=== PATIENT | male | born 1940 | race Caucasian/White ===

== ENCOUNTER → 2016-09-23 | Outpatient (CLI) | payer OTHER ==
[~2016-09-23] MED LIST: LSN20 PO; MULT-506 PO
[2016-09-23 11:27] LABS: ALB/GLOB RATIO 0.9 (0.9-2); ALKALINE PHOSPHATASE 71 U/L (45-117); ALT/SGPT 23 U/L (12-78); AST/SGOT 26 U/L (15-37); BASO % 0.4 %; BASO ABS # 0.02 K/uL (0-0.2); BLOOD UREA NITROGEN 20 mg/dl (7-18); BUN/CREATININE RATIO 18.3 (10-20); CALCIUM 9.1 mg/dl (8.5-10.1); CARBON DIOXIDE 28 mmol/L (21-32); CHLORIDE 108 mmol/L (98-107); CHOLESTEROL 182 mg/dl (0-200); CHOLESTEROL/HDL RATIO 4.8; COMPLETE YES; EOS % 2.4 %; GLUCOSE 97 mg/dl (70-99); HDL CHOLESTEROL 38 mg/dl; HEMATOCRIT 47.3 % (42-52); IG% 0.4 %; LYMPH % 21.8 %; MEAN CORPUSCULAR HEMOGLOBIN 29.6 pg (25-34); MEAN CORPUSCULAR HGB CONC 32.1 g/dl (32-36); MONO % 14.1 %; NEUT % 60.9 %; PLATELET COUNT 172 K/uL (130-400); POTASSIUM 4.4 mmol/L (3.5-5.1); RED BLOOD COUNT 5.14 M/uL (4.7-6.1); SODIUM 142 mmol/L (136-145); WHITE BLOOD COUNT 5.04 K/uL (4.8-10.8)
[2016-09-23 11:30] LABS: LDL CHOLESTEROL CALCULATED 112 mg/dl; TRIGLYCERIDES 159 mg/dl (0-150); VERY LOW DENSITY LIPOPROT CALC 32 mg/dl
== END | disposition home or self-care (01) ==
LOC: C.LABBC 07:46
PROVIDERS: ATTEND Family Medicine
DX: E78.5 Hyperlipidemia, unspecified (principal); I10 Essential (primary) hypertension; C20 Malignant neoplasm of rectum

== ENCOUNTER → 2017-08-26 | Outpatient (CLI) | payer OTHER ==
[2017-08-26 11:31] LABS: ALBUMIN 3.8 gm/dl (3.4-5.0); ALT/SGPT 20 U/L (12-78); BLOOD UREA NITROGEN 18 mg/dl (7-18); CALCIUM 8.8 mg/dl (8.5-10.1); CARBON DIOXIDE 25 mmol/L (21-32); CHOLESTEROL 176 mg/dl (0-200); CREATININE 1.09 mg/dl (0.60-1.40); GLUCOSE 93 mg/dl (70-99); SODIUM 139 mmol/L (136-145)
[2017-08-26 11:33] LABS: ALKALINE PHOSPHATASE 84 U/L (45-117); AST/SGOT 25 U/L (15-37); LDL CHOLESTEROL CALCULATED 108 mg/dl; TOTAL PROTEIN 8.1 gm/dl (6.4-8.2)
== END | disposition home or self-care (01) ==
LOC: C.LABBC 08:48
PROVIDERS: ATTEND Physician Assistant Medical
DX: I10 Essential (primary) hypertension (principal); E78.5 Hyperlipidemia, unspecified; M25.551 Pain in right hip

== ENCOUNTER 2021-02-24 20:35 | Observation (INO) ==
[2021-02-24] MEDS ORDERED: ONDANSETRON INJ 2 MG/ML 2 ML VIAL IV STA (21:54)
[2021-02-24] MEDS ORDERED: PIPERACILLIN/TAZOBACTAM 4.5 GM/120 ML BAG IV ONE (21:54)
[2021-02-24] MEDS ORDERED: PIPERACILL/TAZOBAC CONSULT ACTIVE PRN (21:54)
--- NOTE | 2021-02-24 22:02 | Emergency Department Note ---
Impression & Plan Abdominal pain, Fever, Elevated troponin I level ED Provider Note NAME: STEVEN ISBELL AGE: 81 SEX: M : 1940 ARRIVES VIA: Walk-In INFORMANT: Patient, ED PROVIDER(S): Domingo Galloway DO CHIEF COMPLAINT: abdominal pain HPI: the patient is an 81-year-old male who presented to the emergency department for an evaluation of abdominal pain. The patient's been experiencing right upper quadrant abdominal pain over the course the last few days. He was started on antibiotic as an outpatient by his primary care physician but at this time he is unsure what the antibiotic was. He denies having any vomiting but does have nausea. He does complain of back pain. At this time he denies having any chest pain. He denies having any lower extremity redness. His did note that he was breathing fast but was unsure if this was because of the fever. The fever was noted in triage. The patient denies having any recent trauma. He is h ad no exposure to COVID-19. The patient states he has been compliant with all of his usual outpatient medications. ROS: See above HPI for pertinent positives & negatives. A total of 10 systems reviewed and were otherwise negative. PAST MEDICAL HISTORY: See Below PAST SURGICAL HISTORY: See Below FAMILY HISTORY: See Below SOCIAL HISTORY: See Below HOME MEDICATIONS: See Below ALLERGIES: See Below VITALS: See Below PHYSICAL EXAMINATION: GENERAL: the patient is awake and alert. The patient is somewhat anxious appearing. EYES: The conjunctivae are clear. The pupils are round and reactive. EARS, NOSE, MOUTH AND THROAT: The nose is without any evidence of any deformity. NECK: The neck is nontender and supple. RESPIRATORY: Normal respiratory effort is noted there is no evidence of wheezing rhonchi or rales CARDIOVASCULAR: Regular rate and rhythm noted there no murmurs rubs or gallops normal S1 normal S2. GASTROINTESTINAL: the abdomen was soft and mildly distended. There is diffuse tenderness to palpation. There is specific tenderness in the right upper quadran t. MUSCULOSKELETAL/EXTREMITIES: There is no evidence of gross deformity full range of motion is noted in the hips and shoulders. SKIN: pedal edema was noted bilaterally. Skin was warm and dry. NEUROLOGIC: Patient is awake alert and oriented x3. MEDICAL DECISION MAKING: the patient is an 81-year-old male who presented to emergency department for an evaluation of abdominal pain. The patient was found to have significant abdominal pain on physical exam. CT showed of some fluid collection in the pelvis which could be related to an infection. The patient and his significant other state has had this in the past and it was drained. The patient was treated with IV antibiotics emergency department. He was reevaluated multiple times. I discussed this case with the on-call [facility] hospitalist as well as the on-call general surgical and urology group. They will evaluate the patient in the emergency department. Triage Nursing notes reviewed. Prior medical records reviewed Vital Signs: reviewed and remarkable for no significant abnormalities Differential diagnosis: Etiologies such as appendicitis, diverticulitis, obstruction, inflammatory bowel disease, renal colic, PUD, biliary pathology, pancreatitis, mesenteric ischemia, aortic pathology, infections, genitourinary, UTI, perforated viscus, as well as others were entertained. ER treatment provided: See below Diagnostics interpreted by me: ECG: EKG was obtained in the emergency department. My interpretation is sinus rhythm at 99 bpm. There was no activity. There was no acute ST segment abnormalities noted. This was compared to retracing from February 23, 2020. No significant changes were noted. Cardiac Monitoring: An order was placed for continuous cardiac monitoring. The monitor shows a rate of 67 bpm with sinus rhythm. Laboratory studies: As stated above and show below. Imaging studies: See below Consultation(s): I discussed this case with Dr. Jackson who was operator weapon locating radar for the [facility] hospitalist. I discussed this case with Tejinder Alan who was operator weapon locating radar for the urology group. Past Med/Surg History Medical History Aneurysm of infrarenal abdominal aorta (2013) 4.4 x 4.1 cm per 07/18/[address] scan[address] scan 01/2020 incidentally found bladder mass. 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 H/o tobacco abuse. Rectal cancer s/p colectomy, 2001. Now declines any follow-up with surgery, GI or oncology per PCP note 01/31/20. Surgical History H/O knee surgery H/O wrist surgery History of bladder surgery History of colectomy 2001 in [place] History of colonoscopy (04/30/14) History of incisional hernia repair Hx of cataract surgery R/L Family History Mother Cardiac disorder Hypertension Stroke Father Cancer Daughter Family history of reaction to anesthesia CONFUSED POSTOP Social History Smoking Status: Never smoker Tobacco Type: Cigarettes packs per day: 1; Years Smoked: 30; Second Hand Exposure: No; Hx Alcohol Use: No Hx Substance Use: No Preferred Language: Djiboutian Communication Ability: Effective Visual Impairment: Diminished Hearing Ability: Normal Nib Finisher Required: No Beliefs That Will Affect Care: None marital status: Current Living Situation: Spouse current occupational status: retired current occupation: semi-retired Feels Safe at Home: Yes Childhood Exposure to Second-Hand Smoke: Yes caffeine: Yes Dental Care, Regularly: Yes Physical Activity Frequency: Other Physical Activity Frequency Comment: "works" Seatbelt Use: never Sunscreen Use: No Do you think of yourself as: straight/heterosexual Assistive Devices: Glasses Allergies Allergies Allergy/AdvReac Type Severity Reaction Status Date / Time oxycodone [From OxyContin] AdvReac Intermediate Confusion Verified 02/24/21 22:05 [email or web address] AdvReac Intermediate CONFUSION Verified 02/24/21 22:05 Home Meds Home Medications Medication Instructions Recorded Confirmed acetaminophen 500 mg capsule 500 - 1,000 mg PO Q6H PRN 02/16/20 02/24/21 multivitamin 1 tab PO DAILY 02/24/21 02/24/21 Previous Rx's Medication Instructions Recorded lisinopril 20 mg tablet 20 mg PO BID #180 tab 10/17/20 ciprofloxacin HCl 500 mg tablet 500 mg PO BID 5 Days #10 tab 02/24/21 Results & Data (ED) Vital Signs Vital Signs - 24 hr 02/24/21 20:46 02/24/21 20:52 02/24/21 22:15 Temperature 38.0 C H Temperature Source Oral Pulse Rate 99 H 92 H Pulse Rate from SpO2 Sensor 92 H Respiratory Rate 22 27 H Blood Pressure 116/73 119/64 Blood Pressure Mean 87 82 Blood Pressure Position Sitting Pulse Oximetry 88 L 93 95 Oxygen Delivery Method Room Air Nasal Cannula Oxygen Flow Rate 3 Sepsis Recent Fever Within 48 Hours Yes Sepsis New/Unexplained Change in Mental Status N/A Sepsis Action Taken by Nursing No Action Required 02/24/21 22:20 02/24/21 22:31 02/24/21 22:45 Temperature Temperature Source Pulse Rate 88 97 H Pulse Rate from SpO2 Sensor 89 97 H Respiratory Rate 29 H 29 H Blood Pressure 139/61 120/67 Blood Pressure Mean 87 84 Blood Pressure Position Pulse Oximetry 98 93 92 Oxygen Delivery Method Room Air Oxygen Flow Rate Sepsis Recent Fever Within 48 Hours Sepsis New/Unexplained Change in Mental Status Sepsis Action Taken by Nursing 02/24/21 23:01 02/25/21 00:15 02/25/21 00:34 Temperature 37.5 C Temperature Source Pulse Rate 106 H 73 78 Pulse Rate from SpO2 Sensor 106 H 78 Respiratory Rate 21 23 23 Blood Pressure 124/74 122/54 L 119/57 L Blood Pressure Mean 90 76 77 Blood Pressure Position Pulse Oximetry 93 93 95 Oxygen Delivery Method Room Air Nasal Cannula Nasal Cannula Oxygen Flow Rate 2 Sepsis Recent Fever Within 48 Hours Sepsis New/Unexplained Change in Mental Status Sepsis Action Taken by Nursing 02/25/21 01:00 02/25/21 01:30 Temperature Temperature Source Pulse Rate 72 67 Pulse Rate from SpO2 Sensor 72 67 Respiratory Rate 24 22 Blood Pressure 97/52 L 103/52 L Blood Pressure Mean 67 69 Blood Pressure Position Pulse Oximetry 91 91 Oxygen Delivery Method Nasal Cannula Oxygen Flow Rate Sepsis Recent Fever Within 48 Hours Sepsis New/Unexplained Change in Mental Status Sepsis Action Taken by Long Term Medications Current Medication List: was personally reviewed by me Laboratory Data Attestation: I reviewed the patient's lab results. Result diagrams: 02/24/21 22:14 02/24/21 22:14 Lab Results 02/24/21 02/24/21 02/24/21 Range/Units 22:14 22:14 22:14 WBC 6.27 (4.8-10.8) K/uL RBC 5.17 (4.7-6.1) M/uL Hgb 14.9 (14.0-18.0) g/dL Hct 44.7 (42-52) % MCV 86.5 (80-100) fL MCH 28.8 (25-34) pg MCHC 33.3 (32-36) g/dL RDW Std Deviation 50.7 H (36.4-46.3) fL RDW Coeff of Serena 15.8 H (11.5-14.5) % Plt Count 144 (130-400) K/uL MPV 11.1 H (7.4-10.4) fL Immature Gran % (Auto) 0.2 % Neut % (Auto) 94.8 % Lymph % (Auto) 3.0 % Frio % (Auto) 1.6 % Eos % (Auto) 0.2 % Baso % (Auto) 0.2 % Neut # (Auto) 5.95 (1.4-6.5) K/uL Lymph # (Auto) 0.19 L (1.2-3.4) K/uL Frio # (Auto) 0.10 L (0.11-0.59) K/uL Eos # (Auto) 0.01 (0-0.5) K/uL Baso # (Auto) 0.01 (0-0.2) K/uL Immature Gran # (Auto) 0.01 (0.00-0.02) K/uL PT 10.4 (9.0-12.0) Seconds INR 1.0 (0.9-1.1) APTT 24.5 (21.0-31.0) Seconds PTT Ratio 0.9 Sodium 139 (136-145) mmol/L Potassium 4.7 (3.5-5.1) mmol/L Chloride 107 (98-107) mmol/L Carbon Dioxide 26 (21-32) mmol/L Anion Gap 6.0 (3-11) BUN 21 H (7-18) mg/dl Creatinine 1.46 H (0.6-1.4) mg/dl Est Cr Clr Drug Dosing Not Reportable Est GFR ( Amer) 51.9 ml/min Est GFR (Non-Af Amer) 44.8 ml/min BUN/Creatinine Ratio 14.1 (10-20) Glucose 123 H (70-99) mg/dl Calcium 9.1 (8.5-10.1) mg/dl Total Bilirubin 0.7 (0.2-1) mg/dl AST 27 (15-37) U/L ALT 24 (12-78) U/L Alkaline Phosphatase 101 (45-117) U/L Troponin I 0.318 H* (0-0.045) ng/ml Total Protein 8.6 H (6.4-8.2) gm/dl Albumin 3.4 (3.4-5.0) gm/dl Globulin 5.2 H (2.5-4.0) gm/dl Albumin/Globulin Ratio 0.7 L (0.9-2) Lipase 149 (73-393) U/L Urine Color Urine Appearance (Clear) Urine pH (4.5-7.5) Ur Specific [place] (1.000-1.030) Urine Protein (Negative) Urine Glucose (UA) (Negative) Urine Ketones (Negative) Urine Blood (Negative) Urine Nitrite (Negative) Urine Bilirubin (Negative) Urine Urobilinogen (Negative) Ur Leukocyte Esterase (Negative) Urine WBC (Auto) (0-5) /hpf Urine RBC (Auto) (0-4) /hpf U Hyaline Cast (Auto) (0-5) /lpf U Epithel Cells (Auto) (0-5) /lpf Urine Bacteria (Auto) (Negative) COVID-19 Eval Order SARS-CoV-2 (PCR) (Negative) 02/24/21 02/24/21 02/25/21 Range/Units 22:20 22:20 00:35 WBC (4.8-10.8) K/uL RBC (4.7-6.1) M/uL Hgb (14.0-18.0) g/dL Hct (42-52) % MCV (80-100) fL MCH (25-34) pg MCHC (32-36) g/dL RDW Std Deviation (36.4-46.3) fL RDW Coeff of Serena (11.5-14.5) % Plt Count (130-400) K/uL MPV (7.4-10.4) fL Immature Gran % (Auto) % Neut % (Auto) % Lymph % (Auto) % Frio % (Auto) % Eos % (Auto) % Baso % (Auto) % Neut # (Auto) (1.4-6.5) K/uL Lymph # (Auto) (1.2-3.4) K/uL Frio # (Auto) (0.11-0.59) K/uL Eos # (Auto) (0-0.5) K/uL Baso # (Auto) (0-0.2) K/uL Immature Gran # (Auto) (0.00-0.02) K/uL PT (9.0-12.0) Seconds INR (0.9-1.1) APTT (21.0-31.0) Seconds PTT Ratio Sodium (136-145) mmol/L Potassium (3.5-5.1) mmol/L Chloride (98-107) mmol/L Carbon Dioxide (21-32) mmol/L Anion Gap (3-11) BUN (7-18) mg/dl Creatinine (0.6-1.4) mg/dl Est Cr Clr Drug Dosing Est GFR ( Amer) ml/min Est GFR (Non-Af Amer) ml/min BUN/Creatinine Ratio (10-20) Glucose (70-99) mg/dl Calcium (8.5-10.1) mg/dl Total Bilirubin (0.2-1) mg/dl AST (15-37) U/L ALT (12-78) U/L Alkaline Phosphatase (45-117) U/L Troponin I (0-0.045) ng/ml Total Protein (6.4-8.2) gm/dl Albumin (3.4-5.0) gm/dl Globulin (2.5-4.0) gm/dl Albumin/Globulin Ratio (0.9-2) Lipase (73-393) U/L Urine Color Yellow Urine Appearance Clear (Clear) Urine pH 5.5 (4.5-7.5) Ur Specific [place] 1.039 H (1.000-1.030) Urine Protein Negative (Negative) Urine Glucose (UA) Negative (Negative) Urine Ketones Negative (Negative) Urine Blood Trace H (Negative) Urine Nitrite Negative (Negative) Urine Bilirubin Negative (Negative) Urine Urobilinogen Negative (Negative) Ur Leukocyte Esterase Negative (Negative) Urine WBC (Auto) 5-10 H (0-5) /hpf Urine RBC (Auto) 0-4 (0-4) /hpf U Hyaline Cast (Auto) 0 (0-5) /lpf U Epithel Cells (Auto) 0-5 (0-5) /lpf Urine Bacteria (Auto) Negative (Negative) COVID-19 Eval Order Covid19 at [facility] SARS-CoV-2 (PCR) NEGATIVE (Negative) Administered Medications Discontinued Medications Piperacillin Sod/Tazobactam Sod (Zosyn) 4.5 gm in 120 mls @ 240 mls/hr IV NOW ONE Stop: 02/24/21 22:23 Last Infusion: 02/25/21 00:06 Dose: 0 mls/hr Documented by: [id number] Admin: 02/24/21 23:07 Dose: 240 mls/hr Documented by: [id number] Sodium Chloride (Nss 1000ml) 1,000 mls @ 999 mls/hr IV .Q1H1M ONE Stop: 02/24/21 23:52 Last Infusion: 02/25/21 00:06 Dose: 0 mls/hr Documented by: [id number] Admin: 02/24/21 23:07 Dose: 999 mls/hr Documented by: [id number] Ioversol (Optiray 320 100ml) 100 ml IV ONCE ONE Stop: 02/24/21 23:46 Last Admin: 02/24/21 23:45 Dose: 93 ml Documented by: [id number] Ondansetron HCl (Ondansetron Inj 2 Mg/Ml 2 Ml Vial) 4 mg IV NOW STA Stop: 02/24/21 21:55 Last Admin: 02/24/21 23:07 Dose: 4 mg Documented by: [id number] Imaging Data Attestation: I personally reviewed and interpreted this imaging study as follows: My Impression: One view chest x-ray was obtained in the emergency department. My interpretation is by Basler atelectasis right greater than left. There is no definite filtrate. There is no free air. Radiologist's Impression: Patient: STEVEN ISBELL (Male) : 42 Status: ER Date: 02/25/21 00:03 Room #: History: DIFFUSE ABD PAIN, FEVER Slices: [id number] Priors: Tech: Semaj Wilkerson @ [phone] Exams: CT ABDOMEN & PELVIS With Contrast Contrast: IV Amt: 93 ML OPTIRAY 320 Accession Numbers: [id number] Referring Physician: REFERRED SELF Preliminary Findings Only See Final Report For Complete Findings CT ABDOMEN & PELVIS With Contrast: Mild basilar atelectasis. Mild/moderate hiatal hernia. Fatty infiltration of liver. Spleen at upper limits of normal at 13.8 cm. Scattered pancreatic calcifications likely of chronic pancreatitis. Medial duodenal diverticula extending superior and anterior to the CBD. Left kidney anterior upper pole 1.7 cm cyst. 4.3 cm caliber infrarenal fusiform abdominal aortic aneurysm. Thrombus is seen along the left side of the aorta with a 1.7 cm lumen along the right side. Atherosclerotic calcification extending into bilateral iliac arteries. Left anterior abdominal wall colostomy. Status post prostatectomy. Urinary bladder is normal. Mucosal thickening and fluid in the presacral space measuring up to 2.2 cm in thickness and 8.5 cm [id number]. Possibility of abscess or infection not excluded. Mild irregularity along the anterior cortical surface of the sacrum. Consider bone scan correlation to exclude possibility of osteomyelitis. Sagittal image 43, axial image . L3-4, L4-5, L5-S1 disc desiccation, vacuum disc phenomena and degenerative changes. Radiologist: Juice Kaplan MD Study ready at 00:25 and initial results transmitted at 01:05 Discharge Plan Visit Data Chief Complaint: Abdominal Pain Stated Complaint: CHILLS, ABD PAIN ED Provider: Domingo Galloway Discharge Problem: Abdominal pain, Fever, Elevated troponin I level Patient Disposition: Being Evaluated by Hospitalist Forms Stand Alone Forms: My [facility] Prescriptions Prescriptions: No Action ciprofloxacin HCl 500 mg tablet 500 mg PO BID 5 Days Qty: 10 RF: 0 lisinopril 20 mg tablet 20 mg PO BID Qty: 180 RF: 3 acetaminophen 500 mg Capsule 500 - 1,000 mg PO Q6H PRN (Reason: Pain) RF: 0 multivitamin Tablet 1 tab PO DAILY RF: 0 Referrals Referrals: Angel Barnes DO [Primary Care Provider] -
[2021-02-24 22:26] LABS: Basophils # (auto) 0.01 K/uL (0-0.2); Basophils % (auto) 0.2 %; Eosinophils # (auto) 0.01 K/uL (0-0.5); Eosinophils % (auto) 0.2 %; Hematocrit (blood only) 44.7 % (42-52); Hemoglobin 14.9 g/dL (14.0-18.0); Immature Granulocytes # (auto) 0.01 K/uL (0.00-0.02); Immature Granulocytes % (auto) 0.2 %; Lymphocytes # (auto) 0.19 K/uL (1.2-3.4); Mean Corpuscular Hemoglobin 28.8 pg (25-34); Mean Corpuscular Hgb Conc 33.3 g/dL (32-36); Mean Corpuscular Volume 86.5 fL (80-100); Mean Platelet Volume 11.1 fL (7.4-10.4); Monocytes % (auto) 1.6 %; Neutrophils # (auto) 5.95 K/uL (1.4-6.5); Neutrophils % (auto) 94.8 %; Platelet Count 144 K/uL (130-400); RDW Coefficient of Variation 15.8 % (11.5-14.5); RDW Standard Deviation 50.7 fL (36.4-46.3); Red Blood Count 5.17 M/uL (4.7-6.1); White Blood Count 6.27 K/uL (4.8-10.8)
[2021-02-24 22:43] LABS: Albumin Level 3.4 gm/dl (3.4-5.0); Aspartate Aminotransferase 27 U/L (15-37); BUN Creatinine Ratio 14.1 (10-20); Blood Urea Nitrogen 21 mg/dl (7-18); Calcium 9.1 mg/dl (8.5-10.1); Carbon Dioxide 26 mmol/L (21-32); Chloride 107 mmol/L (98-107); Est GFR (African American) 51.9 ml/min; Est GFR (Non-African American) 44.8 ml/min; Glucose 123 mg/dl (70-99); Lipase 149 U/L (73-393); Potassium 4.7 mmol/L (3.5-5.1); Sodium 139 mmol/L (136-145)
[2021-02-24] MEDS ORDERED: SODIUM CHLORIDE 0.9% 1000ML 1,000 ML IV ONE (22:52)
[2021-02-24 23:02] LABS: Alanine Aminotransferase 24 U/L (12-78); Albumin Globulin Ratio 0.7 (0.9-2); Alkaline Phosphatase 101 U/L (45-117); Bilirubin,Total 0.7 mg/dl (0.2-1); Globulin 5.2 gm/dl (2.5-4.0); Total Protein 8.6 gm/dl (6.4-8.2); Troponin I 0.318 ng/ml (0-0.045)
[2021-02-24 23:03] LABS: Partial Thromboplastin Ratio 0.9; Partial Thromboplastin Time 24.5 Seconds (21.0-31.0); Prothrombin Time 10.4 Seconds (9.0-12.0)
[2021-02-24] MEDS ORDERED: OPTIRAY 320 100ml IV ONE (23:45)
[2021-02-25 01:29] LABS: Appearance Urine Clear (Clear); Bacteria Urine Automated Negative (Negative); Bilirubin Urine Negative (Negative); Blood Urine Trace (Negative); Cast Urine Automated 0 /lpf (0-5); Color Urine Yellow; Epithelial Cell Urine Auto 0-5 /lpf (0-5); Glucose Urine UA Negative (Negative); Ketones Urine Negative (Negative); Leukocyte Esterase Urine Negative (Negative); Nitrite Urine Negative (Negative); Protein Urine Negative (Negative); RBC Urine Automated 0-4 /hpf (0-4); Specific Gravity Urine 1.039 (1.000-1.030); Urobilinogen Urine Negative (Negative); pH Urine 5.5 (4.5-7.5)
--- NOTE | 2021-02-25 02:42 | Urology Consultation ---
Date of Consultation February 25, 2021 Assessment & Plan (1) Abdominal pain: Patient is being admitted by the hospital service: It is uncertain if the fluid collection noted on CT scan in the presacral area represents an abscess or infected fluid. Recommend treating the patient with broad-spectrum antibiotics. Zosyn has already been administered. Blood and urine cultures have been sent and antibiotics can be tailored based on the results of these. We will monitor the patient's serial labs as well as clinically. If he fails to improve clinically repeat imaging can be considered at the fluid collection remains consideration can be given to draining this fluid Patient may have clear liquids for the present time General recommendations be made based on the patient's clinical course as it unfolds History of Present Illness Reason for Consultation: Possible pelvic abscess History of Present Illness Is an 81-year-old male who presented to [facility] emergency department secondary to abdominal pain along with fever. He also noted some shakes and chills. Patient notes that he has been having abdominal pain that appears to be greatest in the right upper quadrant he says for about 5 days. He denies any nausea vomiting. Patient does have a colostomy and he notes it has been working appropriately. He denies any decrease in appetite. He does note some intermittent dysuria. In addition to these complaints he does note some pain in his perineal area. As these symptoms have been going on for several days he did see his primary care physician who placed the patient on antibiotics that the patient is unsure of what this medicine was. In the emergency department patient did have labs and imaging which I independently reviewed. Chest x-ray did not show any pneumonia. CT scan of the abdomen and pelvis did raise concern for the possibility of an abscess or infected fluid in the presacral space. This fluid collection measured approximately 2.2 cm in thickness and 8.5 cm side to side. Labs include a CBC her white blood cell count, hemoglobin, hematocrit, and platelet count are all within normal range. Mr. Profile showed sodium and potassium within normal range. BUN and creatinine were slightly elevated at 21 and 1.4. Patient was noted to have a slight elevation of his troponin at 0.318. Urinalysis was not indicative of infection. A Covid test was performed was noted to be negative. At the time of interview the patient was resting comfortably in bed in no distress. Allergies Allergy/AdvReac Type Severity Reaction Status Date / Time oxycodone [From OxyContin] AdvReac Intermediate Confusion Verified 02/24/21 22:05 [email or web address] AdvReac Intermediate CONFUSION Verified 02/24/21 22:05 Home Medications Medication Instructions Recorded Confirmed Type acetaminophen 500 mg capsule 500 - 1,000 mg PO Q6H PRN 02/16/20 02/24/21 History lisinopril 20 mg tablet 20 mg PO BID #180 tab 10/17/20 02/24/21 Rx ciprofloxacin HCl 500 mg tablet 500 mg PO BID 5 Days #10 tab 02/24/21 02/24/21 Rx multivitamin 1 tab PO DAILY 02/24/21 02/24/21 History Patient History Medical History Aneurysm of infrarenal abdominal aorta (2013) 4.4 x 4.1 cm per 07/18/[address] scan[address] scan 01/2020 incidentally found bladder mass. 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 H/o tobacco abuse. Rectal cancer s/p colectomy, 2001. Now declines any follow-up with surgery, GI or oncology per PCP note 01/31/20. Surgical History H/O knee surgery H/O wrist surgery History of bladder surgery History of colectomy 2001 in [place] History of colonoscopy (04/30/14) History of incisional hernia repair Hx of cataract surgery R/L Family History Mother Cardiac disorder Hypertension Stroke Father Cancer Daughter Family history of reaction to anesthesia CONFUSED POSTOP Social History Smoking Status: Never smoker Tobacco Type: Cigarettes packs per day: 1; Years Smoked: 30; Second Hand Exposure: No; Hx Alcohol Use: No Hx Substance Use: No Preferred Language: Niuean Communication Ability: Effective Visual Impairment: Diminished Hearing Ability: Normal Sewer System Supervisor Required: No Beliefs That Will Affect Care: None marital status: Current Living Situation: Spouse current occupational status: retired current occupation: semi-retired Feels Safe at Home: Yes Childhood Exposure to Second-Hand Smoke: Yes caffeine: Yes Dental Care, Regularly: Yes Physical Activity Frequency: Other Physical Activity Frequency Comment: "works" Seatbelt Use: never Sunscreen Use: No Do you think of yourself as: straight/heterosexual Assistive Devices: Glasses Review of Systems Constitutional: + fever and + chills Eyes: no diplopia Ear, Nose, Mouth, Throat: no ear pain and no sore throat Respiratory: no cough and no dyspnea Cardiovascular: no chest pain Gastrointestinal: + abdominal pain; no nausea and no vomiting Genitourinary: + dysuria (Intermittent) Musculoskeletal: no back pain Integumentary: no rash Neurologic: no localized weakness Physical Exam Constitutional: well developed and well nourished; no acute distress Eyes: no conjunctival abnormality ENMT: Ears: no hearing impairment Mouth: no oropharynx abnormality Neck: trachea midline Respiratory: normal respiratory effort; no respiratory distress and no labored breathing Cardiovascular: Rate/Rhythm: regular rate and regular rhythm Gastrointestinal (Abdomen): Abdomen is soft, nondistended, nontender. Palpation did not cause pain. Patient has a pre-existing colostomy that appears to be functioning appropriately. Musculoskeletal: No calf tenderness Skin: no rashes Neurologic: moves all extremities Psychiatric: A+Ox3, euthymic affect Genitourinary: Patient's perineal area was examined. There are no areas of fluctuance or purulence. There are no areas of erythema or drainage. Results & Data ([facility]) Vital Signs (Past 12 Hours) Vital Signs Temp Pulse Resp BP Pulse Ox 02/25/21 01:30 67 22 103/52 L 91 02/25/21 01:00 72 24 97/52 L 91 02/25/21 00:34 37.5 C 78 23 119/57 L 95 02/25/21 00:15 73 23 122/54 L 93 02/24/21 23:01 106 H 21 124/74 93 02/24/21 22:45 97 H 29 H 120/67 92 02/24/21 22:31 88 29 H 139/61 93 02/24/21 22:20 98 10/04/21 22:15 92 H 27 H 119/64 95 02/24/21 20:52 93 02/24/21 20:46 38.0 C H 99 H 22 116/73 88 L PG Care Time/CCT Total # of Minutes Spent Total Time Spent with Patient: Total time spent is greater than 50% in coordination of care (as documented) at patient's floor/unit and/or counseling patient: Coding Level of Care Code 51779 Inpt Consult Level 5 Diagnoses Abdominal pain R10.84 Abdominal location: generalized (1) Abdominal pain Abdominal location: generalized Qualified Code(s): R10.84 - Generalized abd ominal pain
--- NOTE | 2021-02-25 02:44 | History & Physical Report ---
Date of Service February 25, 2021 Assessment & Plan (1) Infected fluid collection: (2) Fever: (3) Abdominal pain: (4) Elevated troponin I level: (5) Aortic thrombus: (6) Pulmonary emphysema: (7) Aneurysm of infrarenal abdominal aorta: (8) Hypertension: Plan: 81-year-old male past medical history significant for colon cancer status post colectomy and colostomy, hypertension, hyperlipidemia, pulmonary emphysema not on home oxygen, GERD, bladder cancer s/p TURP and BCG, urinary incontinence, infrarenal abdominal aortic aneurysm admitted for sepsis likely secondary to infected fluid collection versus abscess in the presacral area, also noted to have elevated troponin and aortic thrombus on imaging. Infected fluid collection versus abscess, sepsis: Presented with hypotension and fever, evaluation revealed fluid collection in presacral area measuring 2.2 x 8.5 cm concerning for abscess versus infected fluid collection. Blood cultures were collected, and patient was started on Zosyn, will continue Urology consulted for recommendations regarding drainage of fluid collection. NPO with LR at 100cc/hr; received 1L NSS in ER. Elevated troponin: Presented with a troponin of 0.388 without anginal symptoms, no CAD history. EKG with artifact however no notable ST or T wave changes. Will trend troponins and get echocardiogram in the morning. Not impossible that patient could have an element of demand ischemia in the setting of sepsis. Aortic thrombus: Aortic thrombus noted incidentally on CTAP. Patient does have a history of HTN and smoking, putting him at risk for atherosclerotic disease. Patient started on heparin gtt; will likely need transition to warfarin for outpatient setting. High intensity statin (atorvastatin 40mg daily) and baby aspirin initiated given thrombus. Consider vascular surgery consult; current guidelines suggest that surgical removal is sometimes the therapeutic option of choice, though given comorbidities may be a poor surgical candidate. CODE STATUS: FULL CODE FEN: NPO; Heart Healthy diet when no longer NPO. LR @100cc/hr x1L DVT ppx: Heparin gtt Dispo: Med/Surg with Telemetry History of Present Illness Chief Complaint: urinary symptoms, low back/abdominal pain, fevers Primary Care Provider: Angel Barnes DO 81-year-old male past medical history significant for colon cancer status post colectomy and colostomy, hypertension, hyperlipidemia, pulmonary emphysema not on home oxygen, GERD, bladder cancer s/p TURP and BCG, urinary incontinence, infrarenal abdominal aortic aneurysm presented to the ER for low back pain/abdominal pain, urinary complaints, and fevers. In general, symptoms started about a month ago with low back pain and suprapubic area abdominal pain. Then, 2 weeks ago he started to experience some burning and pain with urination, as well as some bloodtinged urine on the toilet paper when he wiped after urinating. On Wednesday reports that he had a temp of 101.0. Patient himself does not endorse any chest pain, shortness of breath, nausea or vomiting, dizziness or lightheadedness, URI symptoms. Has been having intermittent chills/rigors over the weekend. In the ER, patient was noted to be briefly hypoxic to 88% on room air, quickly resolved with nasal cannula and now at time of interview is saturating at 95% on room air. He was also noted to be mildly hypotensive and febrile to 38.0 C. Lab work did not reveal an elevated WBC count, but did show creatinine 1.46 without baseline to compare, elevated troponin to 0.318, UA with trace blood and 510 WBCs, COVID 19 test negative. Chest x-ray without findings suggestive of fluid overload or pneumonia. CTAP STATRad showed 2.2x3.5 cm fluid collection in the presacral space, with possibility of abscess/infection not excluded. Also noted to have mild irregularity along the anterior cortical surface of the sacrum, with possibility of osteomyelitis. Lastly, a thrombus was noted along the left side of the aorta with a 1.7 cm lumen along the right side. Urology was consulted on this patient, who will see him later this morning and recommended initiation of IV antibiotics. Allergies Allergy/AdvReac Type Severity Reaction Status Date / Time oxycodone [From OxyContin] AdvReac Intermediate Confusion Verified 02/24/21 22:05 zolpidem AdvReac Intermediate CONFUSION Verified 02/24/21 22:05 Home Medications Medication Instructions Recorded Confirmed Type acetaminophen 500 mg capsule 500 - 1,000 mg PO Q6H PRN 02/16/20 02/24/21 History lisinopril 20 mg tablet 20 mg PO BID #180 tab 10/17/20 02/24/21 Rx ciprofloxacin HCl 500 mg tablet 500 mg PO BID 5 Days #10 tab 02/24/21 02/24/21 Rx multivitamin 1 tab PO DAILY 02/24/21 02/24/21 History Past Med/Surg History Medical History Aneurysm of infrarenal abdominal aorta (2013) 4.4 x 4.1 cm per 07/18/[address] scan[address] scan 01/2020 incidentally found bladder mass. 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 H/o tobacco abuse. Rectal cancer s/p colectomy, 2001. Now declines any follow-up with surgery, GI or oncology per PCP note 01/31/20. Surgical History H/O knee surgery H/O wrist surgery History of bladder surgery History of colectomy 2001 in [place] History of colonoscopy (04/30/14) History of incisional hernia repair Hx of cataract surgery R/L Family History Mother Cardiac disorder Hypertension Stroke Father Cancer Daughter Family history of reaction to anesthesia CONFUSED POSTOP Social History (Updated 02/25/21 @ 02:58 by Christine Weber DO) Smoking Status: Former smoker Tobacco Type: Cigarettes packs per day: 1; Years Smoked: 30; Second Hand Exposure: No; Hx Alcohol Use: No Hx Substance Use: No Preferred Language: Turkmen Communication Ability: Effective Visual Impairment: Diminished Hearing Ability: Normal Weatherization Technician Required: No Beliefs That Will Affect Care: None marital status: Current Living Situation: Spouse current occupational status: retired current occupation: semi-retired Feels Safe at Home: Yes Childhood Exposure to Second-Hand Smoke: Yes caffeine: Yes Dental Care, Regularly: Yes Physical Activity Frequency: Other Physical Activity Frequency Comment: "works" Seatbelt Use: never Sunscreen Use: No Do you think of yourself as: straight/heterosexual Assistive Devices: None Review of Systems Review of Systems: All systems reviewed & are unremarkable except as noted in HPI & below Constitutional: + fever, + chills and + malaise Respiratory: no cough and no dyspnea Cardiovascular: no chest pain, no palpitations and no edema Gastrointestinal: + abdominal pain; no constipation and no diarrhea/loose stools Musculoskeletal: + back pain (low back) Physical Exam Constitutional: WD/WN, vitals as above Eyes: PERRL, conjunctivae normal, anicteric sclerae ENMT: external ear and nose normal, oropharynx normal Neck: normal visual inspection Respiratory: normal respiratory effort, lungs clear to auscultation Cardiovascular: RRR, no murmur, no edema Gastrointestinal (Abdomen): Inspection/Auscultation: normal bowel sounds Percussion/Palpation: + abdomen tender (mild diffuse, moderate suprapubic) and abdomen soft colostomy bag with healthy stoma Musculoskeletal: no cyanosis or clubbing, extremities motor strength 5/5 Skin: no rashes, warm and dry Neurologic: AAOx3, normal speech. Bilateral UE, LE, and face without sensory or motor deficits. Psychiatric: A+Ox3, euthymic affect Results & Data Results & Data ([facility]) Vital Signs (Past 12 Hours) Vital Signs Temp Pulse Resp BP Pulse Ox 02/25/21 01:30 67 22 103/52 L 91 02/25/21 01:00 72 24 97/52 L 91 02/25/21 00:34 37.5 C 78 23 119/57 L 95 02/25/21 00:15 73 23 122/54 L 93 02/24/21 23:01 106 H 21 124/74 93 02/24/21 22:45 97 H 29 H 120/67 92 02/24/21 22:31 88 29 H 139/61 93 02/24/21 22:20 98 02/24/21 22:15 92 H 27 H 119/64 95 02/24/21 20:52 93 02/24/21 20:46 38.0 C H 99 H 22 116/73 88 L Code Status & VTE Plan VTE Prophylaxis Plan VTE Prophylaxis will be ordered: Yes Supervising Physician Co-Signing Physician Notes Patient seen and examined, chart reviewed, case discussed with Dr. Weber and I agree with her assessment and plan as documented above. In brief, patient is an 81yo male with extensive medical history to include colon cancer s/p colectomy with colostomy placement years ago, HTN, HLP, emphysema, GERD, bladder cancer s/p TURP and BCG treatment presenting with suprapubic abdominal pain and sepsis syndrome. Patient found to have acute on chronic presacral fluid collection concerning for abscess. Case discussed with General Surgery prior to admission re: possible need for drainage Patient febrile prior to arrival, borderline low BP. Presently is HD stable, resting comfortably Colostomy in place with no bleeding/drainage/hernia at stoma Mild suprapubic abdominal discomfort on deep palpation Labs and images reviewed Troponin - 0.388 Assessment/Plan -IV antibiotics for possible presacral abscess/fluid collection, IVF for blood pressure. ?drainage via surgery or IR vs antibiotic management with re-imaging -Urology consultation appreciated -Trend troponin - check 2D echo in AM -Statin and ASA for aortic mural thrombus, heparin gtt for now -Remainder of plan as above Resident Activity Tracking Resident Involvement: Resident Care Provided Care Provided: Adult Hospital Medicine (1) Fever Fever type: unspecified Qualified Code(s): R50.9 - Fever, unspecified (2) Abdominal pain Abdominal location: generalized Qualified Code(s): R10.84 - Generalized abdominal pain
[2021-02-25] MEDS ORDERED: Heparin IV Adult Wt-Based Low-Dose *NO* Bolus Protocol IV STA (03:08)
[2021-02-25] MEDS ORDERED: HEPARIN SODIUM/DEXTROSE 25,000 UNITS/500 ML BAG IV SCH (03:15)
[2021-02-25] MEDS ORDERED: HEPARIN 25000 UNIT/500 ML D5W IV ONE (03:30)
[2021-02-25] MEDS ORDERED: LACTATED RINGER'S 1,000 ML IV SCH (04:05)
[2021-02-25] MEDS ORDERED: PIPERACILL/TAZOBAC CONSULT ACTIVE PRN (04:05)
[2021-02-25] MEDS ORDERED: ONDANSETRON INJ 2 MG/ML 2 ML VIAL IV PRN (04:05)
[2021-02-25] MEDS ORDERED: ACETAMINOPHEN 325 MG TAB PO PRN (04:05)
[2021-02-25] MEDS: PIPERACILLIN/TAZOBACTAM 3.375 GM in DEXTROSE 5% 100 ML IV SCH ×3 (06:35→21:26)
--- NOTE | 2021-02-25 06:48 | XRay Report ---
XR chest 1V portable HISTORY: 81 years-old Male fever acute fever COMPARISON: CT abdomen and pelvis of same day, chest radiographs 02/23/2020 TECHNIQUE: Portable AP view of the chest FINDINGS: Cardiac silhouette is mildly enlarged. Calcified plaque the thoracic aorta. Emphysema with chronic in terstitial coarsening. Mild subsegmental bibasilar densities. No pneumothorax, large pleural effusion , overt pulmonary edema or lobar airspace consolidation. Degenerative changes of the shoulders and sp ine. IMPRESSION: 1. No acute process. 2. Emphysema with mild bibasilar atelectasis. ACT 112: Negative or not required by law. The above report was generated using voice recognition software. It may contain grammatical, syntax o r spelling errors. Electronically signed by: Alo Lopes M.D. 02/25/2021 6:46 AM
[2021-02-25 08:12] LABS: Basophils # (auto) 0.02 K/uL (0-0.2); Basophils % (auto) 0.2 %; Eosinophils # (auto) 0.01 K/uL (0-0.5); Eosinophils % (auto) 0.1 %; Hematocrit (blood only) 39.3 % (42-52); Hemoglobin 12.8 g/dL (14.0-18.0); Immature Granulocytes # (auto) 0.02 K/uL (0.00-0.02); Immature Granulocytes % (auto) 0.2 %; Lymphocytes # (auto) 0.91 K/uL (1.2-3.4); Lymphocytes % (auto) 7.4 %; Mean Corpuscular Hemoglobin 28.4 pg (25-34); Mean Corpuscular Hgb Conc 32.6 g/dL (32-36); Mean Corpuscular Volume 87.3 fL (80-100); Mean Platelet Volume 11.4 fL (7.4-10.4); Monocytes # (auto) 1.04 K/uL (0.11-0.59); Monocytes % (auto) 8.5 %; Neutrophils # (auto) 10.27 K/uL (1.4-6.5); Neutrophils % (auto) 83.6 %; Platelet Count 147 K/uL (130-400); RDW Coefficient of Variation 16.2 % (11.5-14.5); RDW Standard Deviation 52.5 fL (36.4-46.3); White Blood Count 12.27 K/uL (4.8-10.8)
--- NOTE | 2021-02-25 08:14 | CT Scan Report ---
ABDOMEN AND PELVIS CT WITH IV CONTRAST CT DOSE: 373.80 mGy.cm HISTORY: Acute fever with generalized abdominal pain fever TECHNIQUE: Multiaxial CT images of the abdomen and pelvis were performed following the IV administrat ion of 93 cc of Optiray, A dose lowering technique was utilized adhering to the principles of ALARA. COMPARISON STUDY: Chest radiograph of same day, CT abdomen and pelvis 02/09/2020, 07/18/2020. FINDINGS: Cardiomegaly. Subsegmental bibasilar atelectasis/scarring. Study is degraded by respiratory motion ar tifact. The spleen is mildly enlarged measuring 13.8 cm. Scattered calcifications of the pancreas are suggestive of chronic pancreatitis. Unremarkable adrenal glands. Mild gallbladder distention. The co mmon bile duct is mildly dilated measuring up to 10 mm which is a chronic finding. Unremarkable liver . Patency of the hepatic and portal veins. Bilateral renal cysts measure up to 1.6 cm and the left and 1.5 cm on the right. No renal or ureteral calculi or hydronephrosis. Prostatectomy. Mild urinary bladder wall thickening. There is chronic sof t tissue thickening within the presacral tissues. There is a new irregular fluid collection presacral tissues with peripheral areas of calcification overall measuring approximately 2.6 x 1.8 x 1.4 cm. T here is chronic cortical irregularity involving the adjacent sacrum on image 310 which appears stable . Atherosclerotic vascular disease with partially thrombosed infrarenal abdominal aortic aneurysm redem onstrated. 1 measured in a similar fashion to comparison the aneurysm measures 4.5 x 3.6 cm on image 2 3 which is unchanged. Severe atherosclerosis of the iliac arteries. No adenopathy. Fluid-filled distal esophagus. Distal esophageal wall thickening with small hiatal hernia. Moderate s ized duodenal diverticulum. Postoperative changes of left colonic resection with left lower quadrant colostomy. Moderate fecal retention. Interloop edema is noted involving several loops of small bowel within the right midabdomen with areas of mild associated wall bowel thickening. No bowel obstruction . Scattered small bowel air-fluid levels. No acute fracture. IMPRESSION: 1. No bowel obstruction. 2. There are scattered small bowel air-fluid levels throughout the abdomen and pelvis. Several loops of small bowel within the right midabdomen demonstrate wall thickening with interloop edema. Findings are suggestive of a nonspecific enteritis. This finding was called/faxed to the emergency department at time of dictation. 3. Prior rectosigmoid resection with left lower quadrant colostomy. 4. Extensive atherosclerotic vascular disease with unchanged aneurysmal dilation of the infrarenal ab dominal aorta measuring 4.5 x 3.6 cm. 5. Prostatectomy with chronic presacral soft tissue thickening which is likely on a posttreatment/pos toperative basis. New from 07/18/2020 however there is an irregular fluid collection within the center of the presacral soft tissue thickening measuring up to 2.6 cm. Findings should be correlated on a c linical basis to exclude an abscess. 6. Additional findings as above. ACT 112: Negative or not required by law. The above report was generated using voice recognition software. It may contain grammatical, syntax o r spelling errors. Electronically signed by: Alo Lopes M.D. 02/25/2021 8:12 AM
[2021-02-25 08:37] LABS: BUN Creatinine Ratio 14.7 (10-20); Calcium 8.6 mg/dl (8.5-10.1); Creatinine Clr Calc Pharmacy 48.8 ml/min; Est GFR (African American) 65.8 ml/min; Est GFR (Non-African American) 56.8 ml/min; Magnesium 2.1 mg/dl (1.8-2.4); Potassium 4.2 mmol/L (3.5-5.1)
[2021-02-25] MEDS ORDERED: ASPIRIN 81 MG ECTAB PO SCH (09:00)
--- NOTE | 2021-02-25 09:14 | XCELERA ---
[id number]
[2021-02-25] MEDS: ATORVASTATIN 40 MG TAB PO SCH (09:51)
--- NOTE | 2021-02-25 10:33 | Electrocardiogram Report ---
Test Reason : Blood Pressure : / mmHG Vent. Rate : 099 BPM Atrial Rate : 090 BPM P-R Int : 000 ms QRS Dur : 106 ms QT Int : 302 ms P-R-T Axes : 000 -02 037 degrees QTc Int : 387 ms Poor data quality, interpretation may be adversely affected Accelerated Junctional rhythm Abnormal ECG When compared with ECG of 23-FEB-2020 10:27, Junctional rhythm has replaced Sinus rhythm Vent. rate has increased BY 42 BPM Questionable change in QRS duration Confirmed by Juan Castañeda ([id number]) on 02/25/2021 10:33:45 AM Referred By: REFERRED SELF Confirmed By:Cornelius Castañeda
[2021-02-25] MEDS ORDERED: INFLUENZA VACCINE HIGH DOSE PF 65+ 0.7 ML SYR IM ONE (10:45)
[2021-02-25 11:11] LABS: Partial Thromboplastin Ratio 1.5; Partial Thromboplastin Time 38.5 Seconds (21.0-31.0)
[2021-02-25] MEDS ORDERED: NURSING DECISION MEDICATION ONE (11:36)
[2021-02-25] MEDS: IBUPROFEN 200 MG TAB PO PRN ×2 (11:49→19:48)
--- NOTE | 2021-02-25 12:08 | Hospitalist Progress Note ---
Date of Service February 25, 2021 Assessment & Plan (1) Infected fluid collection: Plan: 81-year-old male past medical history significant for colon cancer status post colectomy and colostomy, hypertension, hyperlipidemia, pulmonary emphysema not on home oxygen, GERD, bladder cancer s/p TURP and BCG, urinary incontinence, infrarenal abdominal aortic aneurysm admitted to [facility] on 02/24 for sepsis likely secondary to infected fluid collection versus abscess in the presacral area, also noted to have elevated troponin and aortic thrombus on imaging. Infected fluid collection versus abscess, sepsis Presented with hypotension and fever, evaluation revealed fluid collection in presacral area measuring 2.2 x 8.5 cm concerning for abscess versus infected fluid collection. - Blood cultures were collected, and patient was started on Zosyn, will continue - Urology consulted - recommend abx without drainage for now - continue LR @100cc/hr - will get repeat CT tomorrow - plan to transfer to tertiary center for drainage if fluid collection is larger Elevated troponin Presented with a troponin of 0.388 without anginal symptoms, no CAD history. Troponin peaked at 1.[address]/T changes. --> likely demand ischemia due to sepsis - TTE today with EF 55-60% - EKG PRN for chest pain Aortic thrombus Partially thrombosed infrarenal abdominal aortic aneurysm per CT A/P, chronic. - started on Heparin gtt and Aspirin/Atorvastatin on admission; will stop Heparin gtt and Aspirin today CODE STATUS: full code FEN: clear liquid diet, LR @100cc/hr DVT ppx: Lovenox Dispo: Med/Surg with Tele (2) Fever: (3) Abdominal pain: (4) Elevated troponin I level: (5) Aortic thrombus: (6) Pulmonary emphysema: (7) Aneurysm of infrarenal abdominal aorta: (8) Hypertension: Admission and Anticipated Discharge Date Admission Date: February 25, 2021 Supervising Physician Co-Signing Physician Notes Attending attestation Pt seen and examined in concert with Dr. Palacios. In agreement with the documented findings as noted in the resident documentation with any exceptions or additions as noted here. Ongoing perineal discomfort which is well controlled at present. On examination, S1/S2 nl RRR no MCG. CTAB. Abd NT/ND BS+ve Sepsis, fluid collection/abscess h/o colon cancer s/p resection and fluid collection requiring drainage - urology consult - BCx pending, continue zosyn. Reimage in AM and if no improvement, d/w urology, consider IR vs. txf. IVF Elevated troponin - trend, consider cardiology consult if rising Aortic thrombus - continue heparin, add statin therapy Else see resident documentation as noted. Results & Data Results & Data ([facility]) Vital Signs (Past 12 Hours) Vital Signs Temp Pulse Pulse Resp BP BP Pulse Ox 02/25/21 10:38 37 C 54 L 14 130/77 95 02/25/21 08:00 37 C 59 L 18 127/69 98 02/25/21 06:00 56 L 18 106/52 L 93 02/25/21 05:31 53 L 17 108/49 L 94 02/25/21 05:20 56 L 20 91 02/25/21 05:10 56 L 16 91 02/25/21 05:00 61 19 93 02/25/21 04:59 64 16 93 02/25/21 04:30 60 18 109/55 L 94 02/25/21 03:00 61 20 97/53 L 92 02/25/21 02:30 63 14 105/51 L 95 02/25/21 02:00 67 18 110/54 L 91 02/25/21 01:30 67 22 103/52 L 91 02/25/21 01:00 72 24 97/52 L 91 02/25/21 00:34 37.5 C 78 23 119/57 L 95 02/25/21 00:15 73 23 122/54 L 93 Resident Activity Tracking Resident Involvement: Resident Care Provided Care Provided: Adult Hospital Medicine (1) Fever Fever type: unspecified Qualified Code(s): R50.9 - Fever, unspecified (2) Abdominal pain Abdominal location: generalized Qualified Code(s): R10.84 - Generalized abdominal pain
[2021-02-25 19:17] LABS: Partial Thromboplastin Ratio 1.6; Partial Thromboplastin Time 41.9 Seconds (21.0-31.0)
[2021-02-25] MEDS: LACTATED RINGER'S 1,000 ML IV SCH (19:49)
--- NOTE | 2021-02-25 19:54 | Billing Data ---
Date of Service February 25, 2021 Coding Level of Care Code 82592 Initial Inpt Care Lvl 3
[2021-02-26] MEDS: IBUPROFEN 200 MG TAB PO PRN ×3 (02:30→20:15)
[2021-02-26] MEDS: PIPERACILLIN/TAZOBACTAM 3.375 GM in DEXTROSE 5% 100 ML IV SCH ×3 (06:08→22:19)
[2021-02-26] MEDS: LACTATED RINGER'S 1,000 ML IV SCH ×2 (06:09→14:41)
[2021-02-26] MEDS ORDERED: OPTIRAY 320 100ml IV ONE (06:10)
[2021-02-26 08:07] LABS: Basophils # (auto) 0.02 K/uL (0-0.2); Basophils % (auto) 0.4 %; Hemoglobin 11.6 g/dL (14.0-18.0); Immature Granulocytes # (auto) 0.01 K/uL (0.00-0.02); Immature Granulocytes % (auto) 0.2 %; Lymphocytes # (auto) 0.72 K/uL (1.2-3.4); Lymphocytes % (auto) 14.1 %; Mean Corpuscular Hemoglobin 28.6 pg (25-34); Mean Corpuscular Hgb Conc 32.2 g/dL (32-36); Mean Corpuscular Volume 88.7 fL (80-100); Mean Platelet Volume 11.4 fL (7.4-10.4); Monocytes # (auto) 0.61 K/uL (0.11-0.59); Neutrophils # (auto) 3.63 K/uL (1.4-6.5); Neutrophils % (auto) 71.3 %; Platelet Count 124 K/uL (130-400); RDW Coefficient of Variation 16.3 % (11.5-14.5); RDW Standard Deviation 53.2 fL (36.4-46.3); Red Blood Count 4.06 M/uL (4.7-6.1); White Blood Count 5.09 K/uL (4.8-10.8)
[2021-02-26 08:14] LABS: Partial Thromboplastin Ratio 1.1; Partial Thromboplastin Time 28.2 Seconds (21.0-31.0)
[2021-02-26 08:35] LABS: BUN Creatinine Ratio 12.6 (10-20); Calcium 8.5 mg/dl (8.5-10.1); Creatinine Clr Calc Pharmacy 55.5 ml/min; Est GFR (Non-African American) 69.9 ml/min; Magnesium 2.1 mg/dl (1.8-2.4)
--- NOTE | 2021-02-26 09:02 | CT Scan Report ---
CT abd pelvis IV con only CLINICAL INDICATION: MN ^f/u presacral fluid collection/abscess. TECHNIQUE: Helical axial images of the abdomen and pelvis were obtained and displayed. Automated dose lowering techniques and/or adjustment according to patient size were utilized for this exam. This e xam was performed with intravenous contrast. COMPARISON: Comparison is made to CT abdomen and pelvis 02/24/2021 FINDINGS: Lower chest: Bilateral dependent atelectasis and scarring changes noted. Liver: Unremarkable. No focal lesions are seen. Gallbladder and biliary tree: The gallbladder is distended but no stones or wall thickening is seen. The common bile duct is again noted to be dilated to 1 cm in diameter. Pancreas: Unremarkable, no focal lesions. Spleen: Unremarkable. Adrenals: Unremarkable. Kidneys and ureters: Previously noted renal cysts are stable. Bladder: Unremarkable. Reproductive organs: Unremarkable. Bowel: Patient is status post colectomy with a colostomy noted. Interval resolution of small bowel th ickening/stranding. Lymph nodes Retroperitoneal: Unremarkable. Mesenteric: Unremarkable. Pelvic: Unremarkable. Peritoneum: A thick-walled presacral abscess measures 21 x 20 mm, essentially unchanged in size. Vessels: Redemonstration of a partially thrombosed abdominal aortic aneurysm measuring up to 37 mm in diameter. Abdominal wall: Unremarkable. Bones: Degenerative changes in the visualized spine. IMPRESSION: 1. Stable appearance of thick-walled presacral abscess. 2. Interval resolution of previously noted small bowel thickening/stranding which was previously fel t to represent enteritis. 3. Additional findings as above. ACT 112: Negative or not required by law. Electronically signed by: Jun Mendez M.D. 02/26/2021 9:00 AM
[2021-02-26] MEDS: ATORVASTATIN 40 MG TAB PO SCH (09:06)
[2021-02-26] MEDS: ENOXAPARIN INJ 30 MG/0.3 ML SYR SQ SCH (09:06)
--- NOTE | 2021-02-26 09:23 | Urology Progress Note ---
Date of Service February 26, 2021 Assessment & Plan (1) Infected fluid collection: Plan: 81 yo M admitted for abdominal pain and fever secondary to presacral fluid collection, possible abscess. - Plan of care reviewed with Dr. Kelly. - Patient clinically and subjectively improving. - Afebrile overnight, lab work reviewed - creatinine stable, WBC improved to 5.09. - Urine culture showed three types of organisms, all moderate counts, no sensitivities. - BCx 1/2 prelim gram negative bacilli - remains on IV Zosyn. Recommend repeat blood cultures. - Repeat CTAP today reviewed and noted stable appearance of thick-walled presacral fluid collection/abscess. Interval resolution of previously noted small bowel thickening/stranding. - Fluid collection likely too small for IR drainage at this time since it is less than 3 cm. - Recommend continue antibiotics and supportive care per primary team. - Could repeat imaging in 2 days to reassess. - If fluid collection increasing or he clinically decompensates, then recommend transfer to tertiary center for possible IR drainage. - If fluid collection stable/smaller and pt remains stable, can likely d/c with antibiotics once repeat blood cultures are negative and plan for repeat imaging in a few weeks. - Will reschedule his upcoming outpatient cystoscopy with our service until acute issue resolved. - will follow peripherally, please consult us with additional questions, concerns or changes in patient status. Admission and Anticipated Discharge Date Admission Date: February 25, 2021 Supervising Physician Co-Signing Physician Notes Discussed patient with CORNELIA. Agree with plan. Interval CT shows stable collection, not unexpected after only 36 hours. Would benefit from greater time between scans to monitor progression/resolution. Would not be unreasonable to repeat CT on Wednesday. If stable or improved, likely can manage with antibiotics as drainage tends to be challening if collection is under 3cm. If collection gets bigger, likely will need transfer for center that can percutaneously drain. Subjective Patient seen and examined at bedside this AM. Awake, alert and resting in bed. No acute issues overnight. Generally feeling better this morning. Denies abdominal pain at this time. Voiding spontaneously, no dysuria or hematuria. Reports urgency with occasional incontinence at baseline. Tolerating clear liquid diet, no nausea or vomiting. No fever or chills. Review of Systems Constitutional: as per Subjective / HPI Gastrointestinal: as per Subjective / HPI Genitourinary: + as per Subjective / HPI Physical Exam Constitutional: well developed and well nourished; no acute distress and not ill appearing Respiratory: normal respiratory effort and able to speak in complete sentences; no respiratory distress and no labored breathing Cardiovascular: Extremities: no pedal edema Gastrointestinal (Abdomen): Inspection/Auscultation: abdomen normal to inspection; abdomen not distended Percussion/Palpation: abdomen soft; abdomen nontender and no guarding Colostomy intact Neurologic: moves all extremities and awake Psychiatric: Orientation: alert and oriented x 3 Genitourinary: Urine clear yellow in bedside urinal Results & Data ([facility]) Vital Signs (Past 12 Hours) Vital Signs Temp Pulse Pulse Resp BP Pulse Ox 02/26/21 07:20 36.6 C 51 L 17 134/73 94 02/26/21 03:30 36.6 C 52 L 20 135/70 97 02/25/21 23:00 36.5 C 50 L 20 116/66 92 02/25/21 22:59 50 L PG Care Time/CCT Total # of Minutes Spent Total Time Spent with Patient: Total time spent is greater than 50% in coordination of care (as documented) at patient's floor/unit and/or counseling patient: Coding Level of Care Code 72258 Subseq Hosp Care Lvl 2 Diagnoses Infected fluid collection
--- NOTE | 2021-02-26 12:22 | Hospitalist Progress Note ---
Date of Service February 26, 2021 Assessment & Plan (1) Infected fluid collection: Plan: 81-year-old male past medical history significant for colon cancer status post colectomy and colostomy, hypertension, hyperlipidemia, pulmonary emphysema not on home oxygen, GERD, bladder cancer s/p TURP and BCG, urinary incontinence, infrarenal abdominal aortic aneurysm admitted to [facility] on 02/24 for sepsis likely secondary presacral abscess. Presacral Abscess, Sepsis Resolved Presented with hypotension and fever, evaluation revealed fluid collection in presacral area measuring 2.6 x 1.8 x 1.4 cm concerning for abscess. Repeat CT A/P on 02/26 with stable size of abscess. - 05/27 blood culture positive for gram negative bacilli - might be contaminant, will continue to follow - continue Zosyn - Urology consulted - recommend abx without drainage for now (abscess too small for IR to drain) - continue LR @100cc/hr - will get repeat CT in 2 days to monitor for changes - plan to transfer to tertiary center for drainage if abscess is larger and/or if patient's clinical status deteriorates Elevated troponin Presented with a troponin of 0.388 without anginal symptoms, no CAD history. Troponin peaked at 1.[address]/T changes. --> likely demand ischemia due to sepsis - TTE with EF 55-60% - EKG PRN for chest pain Aortic thrombus Partially thrombosed infrarenal abdominal aortic aneurysm per CT A/P, chronic. No evidence for long-term coagulation. - started on Heparin gtt and Aspirin/Atorvastatin on admission; stopped Heparin gtt and Aspirin on 02/25 - continue Atorvastatin CODE STATUS: full code FEN: clear liquid diet, LR @100cc/hr DVT ppx: Lovenox Dispo: Med/Surg with Tele (2) Fever: (3) Abdominal pain: (4) Elevated troponin I level: (5) Aortic thrombus: (6) Pulmonary emphysema: (7) Aneurysm of infrarenal abdominal aorta: (8) Hypertension: Admission and Anticipated Discharge Date Admission Date: February 25, 2021 Supervising Physician Co-Signing Physician Notes Attending attestation Pt seen and examined in concert with Dr. Palacios. In agreement with the documented findings as noted in the resident documentation with any exceptions or additions as noted here. Essential resolution of perineal discomfort compared to previous, especially with ambulation. Reports no n/v/d/c, CP, SOB On examination, S1/S2 nl RRR no MCG. CTAB. Abd NT/ND BS+ve Sepsis, perineal abscess h/o colon cancer s/p resection and fluid collection - urology consult - + BCx x 1 w/ GN bacilli. Continue zosyn. Per urology recs, unable to IR drain 2/2 size, continue IV abx and reimage in 2 days. Elevated troponin, likely demand ischemia from infection - downtrended. Monitor for recurrent cardiac sx Aortic thrombus, chronic, infrarenal - discontinue heparin. per guideline, no further AC required. Continue statin therapy, ASA. Else see resident documentation as noted. Subjective No acute events overnight. Pain controlled with Ibuprofen 400mg x2 overnight. Denies pain currently, feels comfortable overall, and no complaints. Denies fever/chills, chest pain, palpitations, SOB, cough, N/V, abdominal pain, rash. Review of Systems Review of Systems: All systems reviewed & are unremarkable except as noted in HPI & below Physical Exam Physical Exam: General: A&Ox3. NAD. Cooperative. HEENT: Atraumatic, normocephalic. Pulm: CTAB A&P. -wheezes, -rales, -rhonchi. Symmetrical chest rise. No increase work of breathing. No respiratory distress. Cardiac: RRR, -mrg. Radial pulses intact and symmetrical. Abdominal: soft, non-tender, non-distended, BS x 4 Skin: warm, dry, no rash Results & Data Results & Data ([facility]) Vital Signs (Past 12 Hours) Vital Signs Temp Pulse Resp BP Pulse Ox 02/26/21 11:33 36.7 C 51 L 18 145/74 H 94 02/26/21 07:20 36.6 C 51 L 17 134/73 94 02/26/21 03:30 36.6 C 52 L 20 135/70 97 Resident Activity Tracking Resident Involvement: Resident Care Provided Care Provided: Adult Hospital Medicine (1) Fever Fever type: unspecified Qualified Code(s): R50.9 - Fever, unspecified (2) Abdominal pain Abdominal location: generalized Qualified Code(s): R10.84 - Generalized abdominal pain
[2021-02-27] MEDS: LACTATED RINGER'S 1,000 ML IV SCH (00:14)
[2021-02-27] MEDS: PIPERACILLIN/TAZOBACTAM 3.375 GM in DEXTROSE 5% 100 ML IV SCH ×2 (05:40→13:57)
[2021-02-27] MEDS: IBUPROFEN 200 MG TAB PO PRN ×3 (05:40→22:29)
[2021-02-27 06:12] LABS: Basophils # (auto) 0.01 K/uL (0-0.2); Basophils % (auto) 0.2 %; Eosinophils # (auto) 0.08 K/uL (0-0.5); Eosinophils % (auto) 1.8 %; Hematocrit (blood only) 35.9 % (42-52); Hemoglobin 12.1 g/dL (14.0-18.0); Immature Granulocytes # (auto) 0.02 K/uL (0.00-0.02); Immature Granulocytes % (auto) 0.5 %; Lymphocytes # (auto) 0.74 K/uL (1.2-3.4); Lymphocytes % (auto) 16.7 %; Mean Corpuscular Hemoglobin 29.1 pg (25-34); Mean Corpuscular Hgb Conc 33.7 g/dL (32-36); Mean Corpuscular Volume 86.3 fL (80-100); Mean Platelet Volume 10.6 fL (7.4-10.4); Monocytes # (auto) 0.58 K/uL (0.11-0.59); Monocytes % (auto) 13.1 %; Neutrophils # (auto) 3.01 K/uL (1.4-6.5); Neutrophils % (auto) 67.7 %; Platelet Count 130 K/uL (130-400); RDW Coefficient of Variation 15.7 % (11.5-14.5); Red Blood Count 4.16 M/uL (4.7-6.1); White Blood Count 4.44 K/uL (4.8-10.8)
[2021-02-27 06:22] LABS: Partial Thromboplastin Time 27.4 Seconds (21.0-31.0)
[2021-02-27 06:43] LABS: Giant Platelets 1+
[2021-02-27 06:50] LABS: BUN Creatinine Ratio 9.9 (10-20); Calcium 8.7 mg/dl (8.5-10.1); Creatinine Clr Calc Pharmacy 53.9 ml/min; Est GFR (African American) 78.2 ml/min; Est GFR (Non-African American) 67.5 ml/min; Magnesium 2.1 mg/dl (1.8-2.4); Potassium 3.9 mmol/L (3.5-5.1)
[2021-02-27] MEDS: ATORVASTATIN 40 MG TAB PO SCH (07:55)
[2021-02-27] MEDS: ENOXAPARIN INJ 30 MG/0.3 ML SYR SQ SCH (07:55)
--- NOTE | 2021-02-27 12:09 | Hospitalist Progress Note ---
Date of Service February 27, 2021 Assessment & Plan (1) Infected fluid collection: Plan: 81-year-old male past medical history significant for colon cancer status post colectomy and colostomy, hypertension, hyperlipidemia, pulmonary emphysema not on home oxygen, GERD, bladder cancer s/p TURP and BCG, urinary incontinence, infrarenal abdominal aortic aneurysm admitted to [facility] on 02/24 for sepsis likely secondary presacral abscess. Presacral Abscess with Gram-Negative Bacteremia, Sepsis Resolved Presented with hypotension and fever, evaluation revealed fluid collection in presacral area measuring 2.6 x 1.8 x 1.4 cm concerning for abscess. Repeat CT A/P on 02/26 with stable size of abscess. - / blood culture positive for E. coli, susceptible to cephalosporins - patient afebrile and hemodynamically stable for >48 hours - Zosyn transitioned to Ciprofloxacin 500mg PO BID + Flagyl 500mg PO TID, for total of 14 days tx (day 314) - Urology consulted - recommend abx without drainage for now (abscess too small for IR to drain) - good PO intake - IVFs stopped today - will get repeat CT tomorrow to monitor for changes - plan to transfer to tertiary center for drainage if abscess is larger and/or if patient's clinical status deteriorates Elevated troponin Presented with a troponin of 0.388 without anginal symptoms, no CAD history. Troponin peaked at 1.[address]/T changes. --> likely demand i schemia due to sepsis - TTE with EF 55-60% - EKG PRN for chest pain Aortic thrombus Partially thrombosed infrarenal abdominal aortic aneurysm per CT A/P, chronic. No evidence for long-term coagulation. - started on Heparin gtt and Aspirin/Atorvastatin on admission; stopped Heparin gtt and Aspirin on 02/25 - continue Atorvastatin CODE STATUS: full code FEN: regular diet DVT ppx: Lovenox Dispo: Med/Surg with Tele (2) Fever: (3) Abdominal pain: (4) Elevated troponin I level: (5) Aortic thrombus: (6) Pulmonary emphysema: (7) Aneurysm of infrarenal abdominal aorta: (8) Hypertension: Admission and Anticipated Discharge Date Admission Date: February 25, 2021 Supervising Physician Co-Signing Physician Notes Attending attestation Pt seen and examined in concert with Dr. Abelev. In agreement with the doc umented findings as noted in the resident documentation with any exceptions or additions as noted here. Continued near-resolution of perineal discomfort, tolerating ambulation well. Reports no n/v/d/c, CP, SOB On examination, S1/S2 nl RRR no MCG. CTAB. Abd NT/ND BS+ve Sepsis, perineal abscess h/o colon cancer s/p resection and fluid collection - urology consult - + BCx x 1 w/ E. coli. Transition to PO Cipro/Flagyl. Per urology recs, unable to IR drain 2/2 size, continue IV abx and reimage in 1 days. Aortic thrombus, chronic, infrarenal - briefly treated w/ heparin. per guideline, no further AC required. Continue statin therapy, ASA. Else see resident documentation as noted. Subjective No acute events overnight. Pain controlled with Ibuprofen overnight. Denies pain currently, feels comfortable overall, and no complaints. Denies fever/chills, chest pain, palpitations, SOB, cough, N/V, abdominal pain, rash. Review of Systems Review of Systems: All systems reviewed & are unremarkable except as noted in HPI & below Physical Exam Physical Exam: General: A&Ox3. NAD. Cooperative. HEENT: Atraumatic, normocephalic. Pulm: CTAB A&P. -wheezes, -rales, -rhonchi. Symmetrical chest rise. No increase work of breathing. No respiratory distress. Cardiac: RRR, -mrg. Radial pulses intact and symmetrical. Abdominal: soft, non-tender, non-distended, BS x 4 Skin: warm, dry, no rash Results & Data Results & Data ([facility]) Vital Signs (Past 12 Hours) Vital Signs Temp Pulse Pulse Resp BP Pulse Ox 02/27/21 11:59 36.5 C 59 L 19 173/70 H 95 02/27/21 10:39 36.4 C L 54 L 18 170/74 H 93 02/27/21 07:57 61 159/75 H 02/27/21 07:45 49 L 02/27/21 07:07 36.6 C 56 L 18 170/70 H 93 02/27/21 04:00 36.5 C 56 L 20 128/64 96 Resident Activity Tracking Resident Involvement: Resident Care Provided Care Provided: Adult Hospital Medicine (1) Fever Fever type: unspecified Qualified Code(s): R50.9 - Fever, unspecified (2) Abdominal pain Abdominal location: generalized Qualified Code(s): R10.84 - Generalized abdominal pain
[2021-02-27] MEDS: lisinopril 20 MG TAB PO SCH (13:57)
[2021-02-27] MEDS: CIPROFLOXACIN 500 MG TAB PO SCH (20:44)
[2021-02-27] MEDS: metroNIDAZOLE 500 MG TAB PO SCH (20:44)
[2021-02-28 06:57] LABS: Basophils # (auto) 0.01 K/uL (0-0.2); Basophils % (auto) 0.2 %; Eosinophils # (auto) 0.12 K/uL (0-0.5); Eosinophils % (auto) 2.6 %; Hematocrit (blood only) 36.9 % (42-52); Hemoglobin 12.1 g/dL (14.0-18.0); Immature Granulocytes # (auto) 0.02 K/uL (0.00-0.02); Immature Granulocytes % (auto) 0.4 %; Lymphocytes # (auto) 0.82 K/uL (1.2-3.4); Lymphocytes % (auto) 17.9 %; Mean Corpuscular Hemoglobin 28.1 pg (25-34); Mean Corpuscular Hgb Conc 32.8 g/dL (32-36); Mean Corpuscular Volume 85.8 fL (80-100); Mean Platelet Volume 10.8 fL (7.4-10.4); Monocytes # (auto) 0.52 K/uL (0.11-0.59); Monocytes % (auto) 11.3 %; Neutrophils % (auto) 67.6 %; Platelet Count 156 K/uL (130-400); RDW Coefficient of Variation 15.7 % (11.5-14.5); RDW Standard Deviation 49.2 fL (36.4-46.3); White Blood Count 4.59 K/uL (4.8-10.8)
[2021-02-28 07:09] LABS: Partial Thromboplastin Ratio 1.1; Partial Thromboplastin Time 28.1 Seconds (21.0-31.0)
[2021-02-28 07:23] LABS: BUN Creatinine Ratio 8.8 (10-20); Calcium 8.9 mg/dl (8.5-10.1); Creatinine Clr Calc Pharmacy 53.9 ml/min; Est GFR (African American) 78.2 ml/min; Est GFR (Non-African American) 67.5 ml/min; Magnesium 2.2 mg/dl (1.8-2.4); Potassium 4.1 mmol/L (3.5-5.1)
[2021-02-28] MEDS: ATORVASTATIN 40 MG TAB PO SCH (08:22)
[2021-02-28] MEDS: metroNIDAZOLE 500 MG TAB PO SCH ×2 (08:23→14:29)
[2021-02-28] MEDS: lisinopril 20 MG TAB PO SCH (08:23)
[2021-02-28] MEDS: CIPROFLOXACIN 500 MG TAB PO SCH (08:23)
[2021-02-28] MEDS: ENOXAPARIN INJ 30 MG/0.3 ML SYR SQ SCH (08:23)
[2021-02-28] MEDS ORDERED: OPTIRAY 320 100ml IV ONE (11:06)
--- NOTE | 2021-02-28 11:40 | CT Scan Report ---
ABDOMEN AND PELVIS CT WITH IV CONTRAST CT DOSE: 636.96 mGycm HISTORY: f/u presacral abscess TECHNIQUE: Multiaxial CT images of the abdomen and pelvis were performed following the use of intrave nous contrast. A dose lowering technique was utilized adhering to the principles of ALARA. COMPARISON STUDY: Abdomen and pelvis CT 02/26/2021. FINDINGS: Mild dependent changes again noted within the lung bases. Mild emphysema. No pneumoperitone um. No pneumatosis. No significant change in the presacral fluid collection with extensive surroundin g soft tissue thickening. This measures up to 3 cm and demonstrates peripheral calcification. There i s a small soft tissue tract extending to the right gluteal crease. Therefore, this could represent a fistula, abscess, or postoperative fluid collection. Mild cortical erosion within the anterior aspect of the sacrum persists. This is adjacent to the soft tissue thickening. Persistent moderate bladder wall thickening. The prostate gland is surgically absent. A left lower quadrant colostomy with prior rectosigmoid resection is again noted. Small fat-containing hiatal hernia persists. Large duodenal di verticula are again noted. 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 S table 4.4 x 4.1 cm infrarenal abdominal aortic aneurysm. Bilateral renal hypodense lesions persist an d favor cysts. There is a left retroaortic renal vein. No hydronephrosis. The liver, spleen, adrenal glands unremarkable. There are few scattered calcifications within the pancreas, unchanged. Normal ga llbladder. The main portal vein is patent. No retroperitoneal lymphadenopathy. No bowel wall thickeni ng or obstruction. Moderate stool within the residual colon. IMPRESSION: 1. No significant change in the 3 cm presacral fluid collection with extensive surrounding soft tissu e thickening and adjacent mild anterior sacral cortical erosion. This is nonspecific and could repres ent a postoperative fluid collection, abscess, or fistula. 2. No bowel wall thickening or obstruction. 3. Stable aneurysmal dilatation of the infrarenal abdominal aorta. 4. Postoperative changes as described above. ACT 112: Negative or not required by law. Electronically signed by: Eddie Kebede M.D. 02/28/2021 11:39 AM
--- NOTE | 2021-02-28 13:08 | Hospitalist Progress Note ---
Date of Service February 28, 2021 Assessment & Plan (1) Infected fluid collection: Plan: 81-year-old male past medical history significant for colon cancer status post colectomy and colostomy, hypertension, hyperlipidemia, pulmonary emphysema not on home oxygen, GERD, bladder cancer s/p TURP and BCG, urinary incontinence, infrarenal abdominal aortic aneurysm admitted to [facility] on 02/24 for sepsis secondary presacral abscess. Presacral Abscess with Gram-Negative Bacteremia, Sepsis Resolved Presented with hypotension and fever, evaluation revealed fluid collection in presacral area measuring 2.6 x 1.8 x 1.4 cm concerning for abscess. Repeat CT A/P on 02/28 with stable size of abscess. - 1/2 blood culture positive for E. coli, susceptible to cephalosporins - patient afebrile and hemodynamically stable for >72 hours - Continue Ciprofloxacin 500mg PO BID + Flagyl 500mg PO TID, for total of 14 days tx (day 414) - Urology consulted - appreciate recs - recommend abx without drainage for now (abscess too small for IR to drain) - recommend consulting General Surgery, given anterior sacral cortical erosion near abscess which could represent fistula - General surgery consulted - pending - plan to transfer to tertiary center for drainage if abscess is larger and/or if patient's clinical status deteriorates Elevated troponin Presented with a troponin of 0.388 without anginal symptoms, no CAD history. Troponin peaked at 1.[address]/T changes. --> likely demand ischemia due to sepsis - TTE with EF 55-60% - EKG PRN for chest pain Aortic thrombus Partially thrombosed infrarenal abdominal aortic aneurysm per CT A/P, chronic. No evidence for long-term coagulation. Aneurysm measures 4.4 x 4.1 cm. - started on Heparin gtt and Aspirin/Atorvastatin on admission; stopped Heparin gtt and Aspirin on 02/25 - continue Atorvastatin - recommend f/u imaging with abdominal US in 6 months, per PCP CODE STATUS: full code FEN: regular diet DVT ppx: Lovenox Dispo: Med/Surg with Tele (2) Fever: (3) Abdominal pain: (4) Elevated troponin I level: (5) Aortic thrombus: (6) Pulmonary emphysema: (7) Aneurysm of infrarenal abdominal aorta: (8) Hypertension: Admission and Anticipated Discharge Date Admission Date: February 25, 2021 Supervising Physician Co-Signing Physician Notes I also saw the patient and confirmed ramirez portions of the history and physical examination. I reviewed the case with the resident physician. I agree with the impression and plan as noted in the resident documentation. Upon my exam, the patient complained of only some perirectal discomfort. He had been ambulatory in the hallway with physical therapy. Denied any weakness. Denies any chest pain or shortness of breath. EXAM 171/73, 52, 18, 36.4, 95% on room air Alert and oriented. No distress appreciated. Heart regular rate and rhythm. Lungs clear with nonlabored respirations Abdomen soft and nontender Extremities without edema. No calf tenderness. DATA WBC 4.59, hemoglobin 12.1, hematocrit 36.9, platelet count 156 Sodium 142, potassium 4.1, BUN 9, creatinine 1.04. Procalcitonin from 02/[address] scan of the abdomen pelvis done today shows no significant change in the 3 cm presacral fluid collection with extensive surrounding soft tissue thickening. ASSESSMENT & PLAN Presacral abscess with gram-negative bacteremia, sepsis resolved Consult general surgery for evaluation Little change in imaging; WBC has improved, he looks hemodynamically stable, though procalcitonin yesterday was still elevated and patient has continued perirectal pain. May need to consider transfer to tertiary care facility with colorectal service; will await general surgery input here today. Else see resident documentation as noted. Subjective No acute events overnight. Pain controlled with Ibuprofen overnight. Denies pain currently, feels comfortable overall, and no complaints. Denies fever/chills, chest pain, palpitations, SOB, cough, N/V, abdominal pain, rash. Review of Systems Review of Systems: All systems reviewed & are unremarkable except as noted in HPI & below Physical Exam Physical Exam: General: A&Ox3. NAD. Cooperative. HEENT: Atraumatic, normocephalic. Pulm: CTAB A&P. -wheezes, -rales, -rhonchi. Symmetrical chest rise. No increase work of breathing. No respiratory distress. Cardiac: RRR, -mrg. Radial pulses intact and symmetrical. Abdominal: soft, non-tender, non-distended, BS x 4 Skin: warm, dry, no rash Results & Data Results & Data ([facility]) Vital Signs (Past 12 Hours) Vital Signs Temp Pulse Pulse Resp BP Pulse Ox 02/28/21 11:40 36.4 C L 52 L 18 171/73 H 95 02/28/21 07:43 48 L 02/28/21 06:24 49 L 157/80 H 02/28/21 06:00 36.7 C 49 L 18 173/51 H 95 02/28/21 04:00 36.7 C 49 L 18 130/68 93 Resident Activity Tracking Resident Involvement: Resident Care Provided Care Provided: Adult Hospital Medicine (1) Fever Fever type: unspecified Qualified Code(s): R50.9 - Fever, unspecified (2) Abdominal pain Abdominal location: generalized Qualified Code(s): R10.84 - Generalized abdominal pain
--- NOTE | 2021-02-28 15:41 | Discharge Summary ---
Date of Service February 28, 2021 Admission HPI Per Admitting Provider 81-year-old male past medical history significant for colon cancer status post colectomy and colostomy, hypertension, hyperlipidemia, pulmonary emphysema not on home oxygen, GERD, bladder cancer s/p TURP and BCG, urinary incontinence, infrarenal abdominal aortic aneurysm presented to the ER for low back pain/abdominal pain, urinary complaints, and fevers. In general, symptoms started about a month ago with low back pain and suprapubic area abdominal pain. Then, 2 weeks ago he started to experience some burning and pain with urination, as well as some bloodtinged urine on the toilet paper when he wiped after urinating. On Wednesday reports that he had a temp of 101.0. Patient himself does not endorse any chest pain, shortness of breath, nausea or vomiting, dizziness or lightheadedness, URI symptoms. Has been having intermittent chills/rigors over the weekend. In the ER, patient was noted to be briefly hypoxic to 88% on room air, quickly resolved with nasal cannula and now at time of interview is saturating at 95% on room air. He was also noted to be mildly hypotensive and febrile to 38.0 C. Lab work did not reveal an elevated WBC count, but did show creatinine 1.46 without baseline to compare, elevated troponin to 0.318, UA with trace blood and 510 WBCs, COVID 19 test negative. Chest x-ray without findings suggestive of fluid overload or pneumonia. CTAP STATRad showed 2.2x3.5 cm fluid collection in the presacral space, with possibility of abscess/infection not excluded. Also noted to have mild irregularity along the anterior cortical surface of the sacrum, with possibility of osteomyelitis. Lastly, a thrombus was noted along the left side of the aorta with a 1.7 cm lumen along the right side. Urology was consulted on this patient, who will see him later this morning and recommended initiation of IV antibiotics. Admission Exam Per Admitting Provider Constitutional: WD/WN, vitals as above Eyes: PERRL, conjunctivae normal, anicteric sclerae ENMT: external ear and nose normal, oropharynx normal Neck: normal visual inspection Respiratory: normal respiratory effort, lungs clear to auscultation Cardiovascular: RRR, no murmur, no edema Gastrointestinal (Abdomen): Inspection/Auscultation: normal bowel sounds Percussion/Palpation: + abdomen tender (mild diffuse, moderate suprapubic) and abdomen soft colostomy bag with healthy stoma Musculoskeletal: no cyanosis or clubbing, extremities motor strength 5/5 Skin: no rashes, warm and dry Neurologic: AAOx3, normal speech. Bilateral UE, LE, and face without sensory or motor deficits. Psychiatric: A+Ox3, euthymic affect Principal Diagnosis Presacral Abscess Gram Negative Bacteremia Discharge Exam General: A&Ox3. NAD. Cooperative. HEENT: Atraumatic, normocephalic. Pulm: CTAB A&P. -wheezes, -rales, -rhonchi. Symmetrical chest rise. No increase work of breathing. No respiratory distress. Cardiac: RRR, -mrg. Radial pulses intact and symmetrical. Abdominal: soft, non-tender, non-distended, BS x 4 Skin: warm, dry, no rash Discharge Data Allergies Allergy/AdvReac Type Severity Reaction Status Date / Time oxycodone [From OxyContin] AdvReac Intermediate Confusion Verified 02/24/21 22:05 zolpidem AdvReac Intermediate CONFUSION Verified 02/24/21 22:05 Consultations 02/25/21 02:04 ED Decision to Admit Stat 02/25/21 02:05 Consult Urology Stat 02/28/21 13:05 Consult General Surgery Routine Ordered Studies 02/24/21 21:54 CT abd pelvis IV con only Urgent 02/26/21 06:00 CT abd pelvis IV con only Routine 02/28/21 10:24 CT abd pelvis IV con only Urgent Hospital Course (1) Infected fluid collection: 81-year-old male past medical history significant for colon cancer status post colectomy and colostomy, hypertension, hyperlipidemia, pulmonary emphysema not on home oxygen, GERD, bladder cancer s/p TURP and BCG, urinary incontinence, infrarenal abdominal aortic aneurysm admitted to [facility] on 02/24 for sepsis secondary presacral abscess. Presacral Abscess with Gram-Negative Bacteremia, Sepsis Resolved Presented with hypotension and fever, evaluation revealed fluid collection in presacral area measuring 2.6 x 1.8 x 1.4 cm concerning for abscess. Repeat CT A/P on 02/28 with stable size of abscess. - /2 blood culture positive for E. coli, susceptible to cephalosporins - patient afebrile and hemodynamically stable for >72 hours - Started on Zosyn on admission, transitioned to PO abx on 02/27. Continue Ciprofloxacin 500mg PO BID + Flagyl 500mg PO TID, for total of 14 days tx (day 09/04) - Urology and General Surgery consulted - appreciate recs - abscess to small for IR to drain - given possible fistula in addition to persistent size of abscess, recommend transfer to tertiary hospital for urgent colorectal surgery evaluation - patient (who has demonstrated decision-making capacity) and his do not want to be transferred. He would like to follow up with me early next week and follow up at [facility] as soon as possible with Colorectal surgery, as an outpatient. Elevated troponin Presented with a troponin of 0.388 without anginal symptoms, no CAD history. Troponin peaked at 1.[address]/T changes. 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 No evidence for long-term coagulation. Aneurysm measures 4.4 x 4.1 cm. - started on Heparin gtt and Aspirin/Atorvastatin on admission; stopped Heparin gtt and Aspirin on 02/25 - continue Atorvastatin after discharge - recommend f/u imaging with abdominal US in 6 months, per PCP (2) Fever: (3) Abdominal pain: (4) Elevated troponin I level: (5) Aortic thrombus: (6) Pulmonary emphysema: (7) Aneurysm of infrarenal abdominal aorta: (8) Hypertension: Total Time Total Time Spent Total Time Spent (In Minutes): 45 minutes Discharge Plan Discharge Items Patient Disposition: Home - Self-Care Reason For Visit: ABDOMINAL PAIN Discharge Diagnosis: Presacral Abscess Activity: Per Instructions section Non-emergency contact: Primary Care Provider and Urologist Call non-emergency contact if: you have any medication questions, your symptoms worsen, your pain is worsening and you have a fever Follow-up/Referrals: Ming Palacios MD [Family Provider] - 03/04/21 2:50 pm Diet: Regular Addtl Attending Provider Instructions: You were admitted to [facility] from 02/25 - 02/28 for a bloodstream bacterial infection due to an infected fluid collection near your tailbone. You were started on IV antibiotics and quickly significantly improved. Your pain was well-controlled. You were transitioned to oral antibiotics on 02/27. Our Urologist and General Surgeon was consulted. After 4 days your infected fluid connection did not get smaller, and there is a possibility that it is spreading. Our specialists recommended that you be transferred to be evaluated by a Colorectal Surgeon, but you elected to follow up with one as an outpatient. You will be discharged on 02/28 in improved condition. You will continue to take two antibiotics for the next 10 days: Ciprofloxacin twice per day, and Metronidazole three times per day. You should follow up with Dr. Palacios (primary care physician) at [facility] on [address] ([address]). You will be scheduled with a [facility] Colorectal Surgeon as soon as possible. You will be contacted regarding this appointment. Please continue to take all of your regular home medications as scheduled. Pending Studies at Discharge: No Stand-Alone Forms: [facility], Smoking Cessation Medications and DC Order Prescriptions: New ciprofloxacin HCl 500 mg tablet 500 mg PO BID 10 Days Qty: 20 RF: 0 metronidazole 500 mg tablet 500 mg PO TID 10 Days Qty: 30 RF: 0 atorvastatin 40 mg tablet 40 mg PO DAILY Qty: 30 RF: 3 Continued lisinopril 20 mg tablet 20 mg PO BID Qty: 180 RF: 3 acetaminophen 500 mg Capsule 500 - 1,000 mg PO Q6H PRN (Reason: Pain) RF: 0 multivitamin Tablet 1 tab PO DAILY RF: 0 Discontinued ciprofloxacin HCl 500 mg tablet 500 mg PO BID 5 Days Qty: 10 RF: 0 Discharge Orders: Discharge Order (Routine); Ordered 02/28/21 Ordered By: Ming Palacios Admission Data Admit Date/Time: 02/25/21 02:37 Attending Provider: Gera Góemz Admit Provider: Gera Gómez Primary Care Provider: Angel Barnes Other Providers: Rosina Jackson ; Will Kelly ; Anna Barbosa Supervising Physician Co-Signing Physician Notes I also saw the patient and confirmed ramirez portions of the history and physical examination. Please see the daily note from today for my complete attestation. General surgery evaluated the patient and recommended evaluation at a tertiary care center. This was discussed with the patient and his although he dec lined interfacility transfer in favor of discharge and close outpatient follow- up. We discussed the risk and benefits of this approach; given his insistence on discharge, discussed signs and symptoms of recurrent infection. Outpatient follow-up in our clinic was scheduled for next week. An outpatient referral to colorectal service was also placed today as well. I agree with the impression and plan instructions as noted in the resident discharge summary. Again, please see today's daily progress note for my complete attestation. Resident Activity Tracking Resident Involvement: Resident Care Provided Care Provided: Adult [facility]
--- NOTE | 2021-03-01 09:10 | Surgery Consultation ---
Date of Consultation March 01, 2021 Assessment & Plan (1) Intra-abdominal abscess post-procedure: pt is [id number] male who was admitted to hospital for lower abdominal pain, CT scan diagnosis- presacral fluid collection or abscess or fistula, Plan, base on pt had recently colon surgery, recommended evaluation at a tertiary care center, consult colorectal surgeon for further diagnosis and treatment, Supervising Physician Co-Signing Physician Notes I also saw the patient and confirmed ramirez portions of the history and physical examination. Please see the daily note from today for my complete attestation. General surgery evaluated the patient and recommended evaluation at a tertiary care center. This was discussed with the patient and his although he declined interfacility transfer in favor of discharge and close outpatient follow-up. We discussed the risk and benefits of this approach; given his insistence on discharge, discussed signs and symptoms of recurrent infection. Outpatient follow-up in our clinic was scheduled for next week. An outpatient referral to colorectal service was also placed today as well. I agree with the impression and plan instructions as noted in the resident discharge summary. Again, please see today's daily progress note for my complete attestation. History of Present Illness Reason for Consultation: presacral abscess and fistula Requesting Physician: Ming Drew Attending Physician: Gera Gómez DO History of Present Illness History of Present Illness Chief Complaint: urinary symptoms, low back/abdominal pain, fevers Primary Care Provider: Angel Barnes DO 81-year-old male past medical history significant for colon cancer status post colectomy and colostomy, hypertension, hyperlipidemia, pulmonary emphysema not on home oxygen, GERD, bladder cancer s/p TURP and BCG, urinary incontinence, infrarenal abdominal aortic aneurysm presented to the ER for low back pain/abdominal pain, urinary complaints, and fevers. In general, symptoms started about a month ago with low back pain and suprapubic area abdominal pain. Then, 2 weeks ago he started to experience some burning and pain with urination, as well as some bloodtinged urine on the toilet paper when he wiped after urinating. On Wednesday reports that he had a temp of 101.0. Patient himself does not endorse any chest pain, shortness of breath, nausea or vomiting, dizziness or lightheadedness, URI symptoms. Has been having intermittent chills/rigors over the weekend. In the ER, patient was noted to be briefly hypoxic to 88% on room air, quickly resolved with nasal cannula and now at time of interview is saturating at 95% on room air. He was also noted to be mildly hypotensive and febrile to 38.0 C. Lab work did not reveal an elevated WBC count, but did show creatinine 1.46 without baseline to compare, elevated troponin to 0.318, UA with trace blood and 510 WBCs, COVID 19 test negative. Chest x-ray without findings suggestive of fluid overload or pneumonia. CTAP STAT[facility] showed 2.2x3.5 cm fluid collection in the presacral space, with possibility of abscess/infection not excluded. Also noted to have mild irregularity along the anterior cortical surface of the sacrum, with possibility of osteomyelitis. Lastly, a thrombus was noted along the left side of the aorta with a 1.7 cm lumen along the right side. Urology was c onsulted on this patient, who will see him later this morning and recommended initiation of IV antibiotics. I ( Anna Barbosa MD ) got a call for consult presacral abscess and fistula, I reviewed pt's H/P, labs, CT scan, Allergies Allergy/AdvReac Type Severity Reaction Status Date / Time oxycodone [From OxyContin] AdvReac Intermediate Confusion Verified 02/24/21 22:05 [email or web address] AdvReac Intermediate CONFUSION Verified 02/24/21 22:05 Home Medications Medication Instructions Recorded Confirmed Type acetaminophen 500 mg capsule 500 - 1,000 mg PO Q6H PRN 02/16/20 02/24/21 History lisinopril 20 mg tablet 20 mg PO BID #180 tab 10/17/20 02/24/21 Rx ciprofloxacin HCl 500 mg tablet 500 mg PO BID 5 Days #10 tab 02/24/21 02/24/21 Rx multivitamin 1 tab PO DAILY 02/24/21 02/24/21 History Past Med/Surg History Medical History Aneurysm of infrarenal abdominal aorta (2013) 4.4 x 4.1 cm per 07/18/[address] scan 01/2020 incidentally found bladder mass. 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 H/o tobacco abuse. Rectal cancer s/p colectomy, 2001. Now declines any follow-up with surgery, GI or oncology per PCP note 01/31/20. Surgical History H/O knee surgery H/O wrist surgery History of bladder surgery History of colectomy 2001 in [place] History of colonoscopy (04/30/14) History of incisional hernia repair Hx of cataract surgery R/L Family History Mother Cardiac disorder Hypertension Stroke Father Cancer Daughter Family history of reaction to anesthesia CONFUSED POSTOP Social History (Updated 02/25/21 @ 02:58 by Christine Weber DO) Smoking Status: Former smoker Tobacco Type: Cigarettes packs per day: 1; Years Smoked: 30; Second Hand Exposure: No; Hx Alcohol Use: No Hx Substance Use: No Preferred Language: [place] Communication Ability: Effective Visual Impairment: Diminished Hearing Ability: Normal Assistant Corporate Secretary Required: No Beliefs That Will Affect Care: None marital status: Current Living Situation: Spouse current occupational status: retired current occupation: semi-retired Feels Safe at Home: Yes Childhood Exposure to Second-Hand Smoke: Yes caffeine: Yes Dental Care, Regularly: Yes Physical Activity Frequency: Other Physical Activity Frequency Comment: "works" Seatbelt Use: never Sunscreen Use: No Do you think of yourself as: straight/heterosexual Assistive Devices: None Review of Systems Review of Systems: All systems reviewed & are unremarkable except as noted in HPI & below Constitutional: + fever, + chills and + malaise Respiratory: no cough and no dyspnea Cardiovascular: no chest pain, no palpitations and no edema Gastrointestinal: + abdominal pain; no constipation and no diarrhea/loose stools Musculoskeletal: + back pain (low back) Allergies Allergy/AdvReac Type Severity Reaction Status Date / Time oxycodone [From OxyContin] AdvReac Intermediate Confusion Verified 02/24/21 22:05 [email or web address] AdvReac Intermediate CONFUSION Verified 02/24/21 22:05 Home Medications Medication Instructions Recorded Confirmed Type acetaminophen 500 mg capsule 500 - 1,000 mg PO Q6H PRN 02/16/20 02/24/21 History lisinopril 20 mg tablet 20 mg PO BID #180 tab 10/17/20 02/24/21 Rx multivitamin 1 tab PO DAILY 02/24/21 02/24/21 History atorvastatin 40 mg tablet 40 mg PO DAILY #30 tab 02/28/21 Rx ciprofloxacin HCl 500 mg tablet 500 mg PO BID 10 Days #20 tab 02/28/21 Rx metronidazole 500 mg tablet 500 mg PO TID 10 Days #30 tab 02/28/21 Rx Patient History Medical History Aneurysm of infrarenal abdominal aorta (2013) 4.4 x 4.1 cm per 07/18/[address] scan[address] scan 01/2020 incidentally found bladder mass. 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 H/o tobacco abuse. Rectal cancer s/p colectomy, 2001. Now declines any follow-up with surgery, GI or oncology per PCP note 01/31/20. Surgical History H/O knee surgery H/O wrist surgery History of bladder surgery History of colectomy 2001 in [place] History of colonoscopy (04/30/14) History of incisional hernia repair Hx of cataract surgery R/L Family History Mother Cardiac disorder Hypertension Stroke Father Cancer Daughter Family history of reaction to anesthesia CONFUSED POSTOP Social History (Updated 02/25/21 @ 02:58 by Christine Weber DO) Smoking Status: Former smoker Tobacco Type: Cigarettes packs per day: 1; Years Smoked: 30; Second Hand Exposure: No; Hx Alcohol Use: No Hx Substance Use: No Preferred Language: [place] Communication Ability: Effective Visual Impairment: Diminished Hearing Ability: Normal Assistant Corporate Secretary Required: No Beliefs That Will Affect Care: None marital status: Current Living Situation: Spouse current occupational status: retired current occupation: semi-retired Feels Safe at Home: Yes Childhood Exposure to Second-Hand Smoke: Yes caffeine: Yes Dental Care, Regularly: Yes Physical Activity Frequency: Other Physical Activity Frequency Comment: "works" Seatbelt Use: never Sunscreen Use: No Do you think of yourself as: straight/heterosexual Assistive Devices: None Physical Exam Constitutional: WD/WN, vitals as above Eyes: PERRL, conjunctivae normal, anicteric sclerae Respiratory: normal respiratory effort, lungs clear to auscultation Cardiovascular: RRR, no murmur, no edema Gastrointestinal (Abdomen): soft, NT, Nd, colostomy working well, BS + Neurologic: patellar DTR's 2+ bilat, sensation intact Psychiatric: A+Ox3, euthymic affect Results & Data ([facility]) Vital Signs (Past 12 Hours) T36.6,BP 173/83, HR 50, RR 18, O2 sat 97 % RA Laboratory Results Abnormal Labs 02/24/21 02/24/21 02/25/21 22:14 22:14 00:35 WBC RBC Hgb Hct RDW Std Deviation 50.7 H RDW Coeff of Serena 15.8 H Plt Count MPV 11.1 H Neut # (Auto) Lymph # (Auto) 0.19 L Tyler # (Auto) 0.10 L APTT Chloride BUN 21 H Creatinine 1.46 H BUN/Creatinine Ratio Glucose 123 H Troponin I 0.318 H* Total Protein 8.6 H Globulin 5.2 H Albumin/Globulin Ratio 0.7 L Procalcitonin Ur Specific [place] 1.039 H Urine Blood Trace H Urine WBC (Auto) 5-10 H 02/25/21 02/25/21 02/25/21 06:20 07:34 07:34 WBC 12.27 H RBC 4.50 L Hgb 12.8 L Hct 39.3 L RDW Std Deviation 52.5 H RDW Coeff of Serena 16.2 H Plt Count MPV 11.4 H Neut # (Auto) 10.27 H Lymph # (Auto) 0.91 L Tyler # (Auto) 1.04 H APTT Chloride 109 H BUN Creatinine BUN/Creatinine Ratio Glucose 104 H Troponin I 1.040 H* Total Protein Globulin Albumin/Globulin Ratio Procalcitonin Ur Specific [place] Urine Blood Urine WBC (Auto) 02/25/21 02/25/21 02/25/21 10:46 10:46 19:00 WBC RBC Hgb Hct RDW Std Deviation RDW Coeff of Serena Plt Count MPV Neut # (Auto) Lymph # (Auto) Tyler # (Auto) APTT 38.5 H 41.9 H Chloride BUN Creatinine BUN/Creatinine Ratio Glucose Troponin I 0.776 H* Total Protein Globulin Albumin/Globulin Ratio Procalcitonin Ur Specific [place] Urine Blood Urine WBC (Auto) 02/26/21 02/26/21 02/27/21 07:27 07:27 05:55 WBC 4.44 L RBC 4.06 L 4.16 L Hgb 11.6 L 12.1 L Hct 36.0 L 35.9 L RDW Std Deviation 53.2 H 50.0 H RDW Coeff of Serena 16.3 H 15.7 H Plt Count 124 L MPV 11.4 H 10.6 H Neut # (Auto) Lymph # (Auto) 0.72 L 0.74 L Tyler # (Auto) 0.61 H APTT Chloride 108 H BUN Creatinine BUN/Creatinine Ratio Glucose Troponin I Total Protein Globulin Albumin/Globulin Ratio Procalcitonin Ur Specific [place] Urine Blood Urine WBC (Auto) 02/27/21 02/27/21 02/28/21 05:55 05:55 06:34 WBC RBC Hgb Hct RDW Std Deviation RDW Coeff of Serena Plt Count MPV Neut # (Auto) Lymph # (Auto) Tyler # (Auto) APTT Chloride 110 H 111 H BUN Creatinine BUN/Creatinine Ratio 9.9 L 8.8 L Glucose Troponin I Total Protein Globulin Albumin/Globulin Ratio Procalcitonin 2.42 H Ur Specific [place] Urine Blood Urine WBC (Auto) 02/28/21 06:34 WBC 4.59 L RBC 4.30 L Hgb 12.1 L Hct 36.9 L RDW Std Deviation 49.2 H RDW Coeff of Serena 15.7 H Plt Count MPV 10.8 H Neut # (Auto) Lymph # (Auto) 0.82 L Tyler # (Auto) APTT Chloride BUN Creatinine BUN/Creatinine Ratio Glucose Troponin I Total Protein Globulin Albumin/Globulin Ratio Procalcitonin Ur Specific [place] Urine Blood Urine WBC (Auto) Diagnostic Findings ABDOMEN AND PELVIS CT WITH IV CONTRAST 02/28/2021 CT DOSE: 636.96 mGycm HISTORY: f/u presacral abscess TECHNIQUE: Multiaxial CT images of the abdomen and pelvis were performed following the use of intravenous contrast. A dose lowering technique was utilized adhering to the principles of ALARA. COMPARISON STUDY: Abdomen and pelvis CT 02/26/2021. FINDINGS: Mild dependent changes again noted within the lung bases. Mild emphysema. No pneumoperitoneum. No pneumatosis. No significant change in the presacral fluid collection with extensive surrounding soft tissue thickening. This measures up to 3 cm and demonstrates peripheral calcification. There is a small soft tissue tract extending to the right gluteal crease. Therefore, this could represent a fistula, abscess, or postoperative fluid collection. Mild cortical erosion within the anterior aspect of the sacrum persists. This is adjacent to the soft tissue thickening. Persistent moderate bladder wall thickening. The prostate gland is surgically absent. A left lower quadrant colostomy with prior rectosigmoid resection is again noted. Small fat-containing hiatal hernia persists. Large duodenal diverticula are again noted. 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 Stable 4.4 x 4.1 cm infrarenal abdominal aortic aneurysm. Bilateral renal hypodense lesions persist and favor cysts. There is a left retroaortic renal vein. No hydronephrosis. The liver, spleen, adrenal glands unremarkable. There are few scattered calci fications within the pancreas, unchanged. Normal gallbladder. The main portal vein is patent. No retroperitoneal lymphadenopathy. No bowel wall thickening or obstruction. Moderate stool within the residual colon. IMPRESSION: 1. No significant change in the 3 cm presacral fluid collection with extensive surrounding soft tissue thickening and adjacent mild anterior sacral cortical erosion. This is nonspecific and could represent a postoperative fluid collection, abscess, or fistula. 2. No bowel wall thickening or obstruction. 3. Stable aneurysmal dilatation of the infrarenal abdominal aorta. 4. Postoperative changes as described above. CT abd pelvis IV con only CLINICAL INDICATION: [place] 02/26/2021 ^f/u presacral fluid collection/abscess. TECHNIQUE: Helical axial images of the abdomen and pelvis were obtained and displayed. Automated dose lowering techniques and/or adjustment according to patient size were utilized for this exam. This exam was performed with intravenous contrast. COMPARISON: Comparison is made to CT abdomen and pelvis 02/24/2021 FINDINGS: Lower chest: Bilateral dependent atelectasis and scarring changes noted. Liver: Unremarkable. No focal lesions are seen. Gallbladder and biliary tree: The gallbladder is distended but no stones or wall thickening is seen. The common bile duct is again noted to be dilated to 1 cm in diameter. Pancreas: Unremarkable, no focal lesions. Spleen: Unremarkable. Adrenals: Unremarkable. Kidneys and ureters: Previously noted renal cysts are stable. Bladder: Unremarkable. Reproductive organs: Unremarkable. Bowel: Patient is status post colectomy with a colostomy noted. Interval resolution of small bowel thickening/stranding. Lymph nodes Retroperitoneal: Unremarkable. Mesenteric: Unremarkable. Pelvic: Unremarkable. Peritoneum: A thick-walled presacral abscess measures 21 x 20 mm, essentially unchanged in size. Vessels: Redemonstration of a partially thrombosed abdominal aortic aneurysm measuring up to 37 mm in diameter. Abdominal wall: Unremarkable. Bones: Degenerative changes in the visualized spine. IMPRESSION: 1. Stable appearance of thick-walled presacral abscess. 2. Interval resolution of previously noted small bowel thickening/stranding which was previously felt to represent enteritis. 3. Additional findings as above. 02/24/2021BDOMEN AND PELVIS CT WITH IV CONTRAST CT DOSE: 373.80 mGy.cm HISTORY: Acute fever with generalized abdominal pain fever TECHNIQUE: Multiaxial CT images of the abdomen and pelvis were performed following the IV administration of 93 cc of Optiray, A dose lowering technique was utilized adhering to the principles of ALARA. COMPARISON STUDY: Chest radiograph of same day, CT abdomen and pelvis 02/09/2020, 07/18/2020. FINDINGS: Cardiomegaly. Subsegmental bibasilar atelectasis/scarring. Study is degraded by respiratory motion artifact. The spleen is mildly enlarged measuring 13.8 cm. Scattered calcifications of the pancreas are suggestive of chronic pancreatitis. Unremarkable adrenal glands. Mild gallbladder distention. The common bile duct is mildly dilated measuring up to 10 mm which is a chronic finding. Unremarkable liver. Patency of the hepatic and portal veins. Bilateral renal cysts measure up to 1.6 cm and the left and 1.5 cm on the right. No renal or ureteral calculi or hydronephrosis. Prostatectomy. Mild urinary bladder wall thickening. There is chronic soft tissue thickening within the presacral tissues. There is a new irregular fluid collection presacral tissues with peripheral areas of calcification overall measuring approximately 2.6 x 1.8 x 1.4 cm. There is chronic cortical irregularity involving the adjacent sacrum on image 310 which appears stable. Atherosclerotic vascular disease with partially thrombosed infrarenal abdominal aortic aneurysm redemonstrated. 1 measured in a similar fashion to comparison the aneurysm measures 4.5 x 3.6 cm on image 2 3 which is unchanged. Severe atherosclerosis of the iliac arteries. No adenopathy. Fluid-filled distal esophagus. Distal esophageal wall thickening with small hiatal hernia. Moderate sized duodenal diverticulum. Postoperative changes of left colonic resection with left lower quadrant colostomy. Moderate fecal retention. Interloop edema is noted involving several loops of small bowel within the right midabdomen with areas of mild associated wall bowel thickening. No bowel obstruction. Scattered small bowel air-fluid levels. No acute fracture. IMPRESSION: 1. No bowel obstruction. 2. There are scattered small bowel air-fluid levels throughout the abdomen and pelvis. Several loops of small bowel within the right midabdomen demonstrate wall thickening with interloop edema. Findings are suggestive of a nonspecific enteritis. This finding was called/faxed to the emergency department at time of dictation. 3. Prior rectosigmoid resection with left lower quadrant colostomy. 4. Extensive atherosclerotic vascular disease with unchanged aneurysmal dilation of the infrarenal abdominal aorta measuring 4.5 x 3.6 cm. 5. Prostatectomy with chronic presacral soft tissue thickening which is likely on a posttreatment/postoperative basis. New from 07/18/2020 however there is an irregular fluid collection within the center of the presacral soft tissue thickening measuring up to 2.6 cm. Findings should be correlated on a clinical basis to exclude an abscess. 6. Additional findings as above.
== END 2021-02-28 17:41 | disposition home or self-care (01) ==
LOC: ED 20:35 → EDINP 02-25 02:37 → INTOOBSV 02-25 02:37 → SUATTDRO 02-25 02:37 → EDINP 02-25 03:30 → 2N 02-25 15:25